=== PATIENT | female | born 1955 | race Caucasian/White ===

== ENCOUNTER 2017-11-22 09:03 | Inpatient (IN) | payer BC ==
[2017-11-22] MEDS ORDERED: Albuterol/Ipratropium 3.0-0.5 MG/3 ML Neb Soln NEB ONE (09:16)
[2017-11-22] MEDS ORDERED: methylPREDNISolone Sodium Succinate 125 MG/2 ML SDV IM ONE (09:16)
[2017-11-22] MEDS ORDERED: Albuterol/Ipratropium 3.0-0.5 MG/3 ML Neb Soln ONE (09:22)
[2017-11-22] MEDS ORDERED: Levofloxacin/Dextrose 5%-Water 750 MG in Premix Bag 1 BAG IV ONE (09:36)
[2017-11-22] MEDS: Sodium Chloride 0.9% 10 ML Syringe FLUSH PRN (09:50)
[2017-11-22] MEDS ORDERED: methylPREDNISolone Sodium Succinate 125 MG/2 ML SDV IVPUSH ONE (10:02)
--- NOTE | 2017-11-22 10:09 | CR ---
Chest: Portable view of the chest is obtained. Comparison: No previous study. Diffuse increased density is seen throughout the right chest. Central lung markings are increased on the left side. Findings may represent diffuse bronchitis and early right-sided pneumonia. Asymmetric pulmonary vascular congestion is also possible on a noncardiogenic etiology or due to acute cardiac disease. Heart size and mediastinum are normal. Bony structures are unremarkable. Impression: 1. Diffuse increased density within both sides of the chest, worse on the right side as described above. Diagnostic code #3
[2017-11-22] MEDS ORDERED: Albuterol 0.083% 2.5 MG/3 ML Neb Soln NEB ONE (11:08)
--- NOTE | 2017-11-22 11:08 | EDM.PDOC ---
ED HPI GENERAL MEDICAL PROBLEM - General Chief Complaint: Respiratory Problem Stated Complaint: [facility] Time Seen by Provider: 11/22/17 09:08 Source of Information: Reports: Patient, RN Notes Reviewed - History of Present Illness INITIAL COMMENTS - FREE TEXT/NARRATIVE: 62-year-old lady has been brought in by [facility] ambulance with cough, fever, chills, dyspnea, difficulty breathing, near respiratory failure. Her called a different family member due to her difficulty breathing, generalized weakness, inability to get out of bed this morning. Upon that family members arrival patient was having severe difficulty breathing was starting to "turn blue. ambulance called, upon their arrival she did look dusky and O2 sats were only in the 50% range. They placed her on 15 L O2 nonrebreather and also started an albuterol neb in route. With that her sats did come up to 98% . She arrived to the ED with sats running 96-98% on the nonrebreather but very tachypneic, somewhat confused, not able to give reliable history. Pain is primarily from a brother. He eats that she has not been well for 3 or 4 days with cough congestion some difficulty breathing. He states she did seem to be better yesterday was able to get up and walk around the bed then much worse this morning. She does have history of prior smoking. She does not use oxygen at home. No history of known diabetes. - Related Data Allergies Allergy/AdvReac Type Severity Reaction Status Date / Time No Known Allergies Allergy Verified 11/22/17 09:48 Home Meds: Home Meds Fish Oil/[place]-3 Fatty Acids [Fish Oil] 1 tab PO DAILY 11/22/17 [History] MV,Ca,Min/Iron Fum/FA/Lyco/Lut [Complete Multi] 1 tab PO DAILY 11/22/17 [History ] Magnesium [Magnesium] 200 mg PO DAILY 11/22/17 [History] Potassium [Potassium] 75 mg PO DAILY 11/22/17 [History] Turmeric/Turmeric Root Extract [Turmeric 450-50 mg Capsule] 900 mg PO DAILY [History] Zolpidem [Ambien CR] 12.5 mg PO QPM 11/22/17 [History] amLODIPine Bes/Olmesartan Med [Chrissie 10-40 MG] 1 tab PO DAILY 11/22/17 [History] atorvaSTATin [Lipitor] 20 mg PO DAILY 11/22/17 [History] busPIRone HCl [Buspirone HCl] 2.5 tab PO BID 11/22/17 [History] Past Medical History HEENT History: Reports: Impaired Vision [employer]EST[employer] History: Reports: Psychiatric History: Reports: Anxiety, Depression - Past Surgical History GI Surgical History: Reports: Appendectomy Female Surgical History: Reports: Tubal Ligation Social & Family History - Tobacco Use Smoking Status *Q: Current Every Day Smoker Years of Tobacco use: 40 Packs/Tins Daily: 0.5 - Caffeine Use Caffeine Use: Reports: Coffee - Recreational Drug Use Recreational Drug Use: No ED ROS GENERAL - Review of Systems Review Of Systems: Unable To Obtain (What limited information I have is from family) Constitutional: Reports: Fever, Chills Respiratory: Reports: Shortness of Breath, Wheezing, Cough ED EXAM, GENERAL - Physical Exam Exam: See Below Exam Limited By: Altered Mental Status (Patient moderately confused on arrival, she does make eye contact, attempts to answer questions but her answers don't make much sense) General Appearance: Alert, Moderate Distress Eye Exam: Bilateral Eye: PERRL Throat/Mouth: Other (Oral mucosa mildly dry) Head: No: Atraumatic, Facial Swelling Respiratory/Chest: Respiratory Distress (Moderate tachypnea), Rhonchi (Mild to moderate bilateral mild right-sided), Wheezing, Accessory Muscle Use GI/Abdominal: Soft, Non-Tender. No: Guarding Back Exam: No: CVA Tenderness (L), CVA Tenderness (R) Extremities: No: Pedal Edema, Leg Pain, Increased Warmth, Redness Neurological: No Motor/Sensory Deficits, Other (Awake, moderately confused) Skin Exam: Warm, Dry, Normal Color Course - Vital Signs Last Recorded V/S: Last Vital Signs Temp 101.7 F H 11/22/17 09:07 Pulse 128 H 11/22/17 09:07 Resp 24 H 11/22/17 09:07 BP 115/83 11/22/17 09:07 Pulse Ox 100 11/22/17 09:23 - Orders/Labs/Meds Orders: Active Orders 24 hr Category Date Time Status EKG 12 Lead [EKG Documentation Completion] [RC] STAT Care 11/22/17 09:15 Active Oxygen Therapy [RC] ASDIRECTED Care 11/22/17 09:15 Active Peripheral IV Care [RC] . DIRECTED Care 11/22/17 09:16 Active RT Aerosol Therapy [RC] ASDIRECTED Care 11/22/17 09:16 Active RT Aerosol Therapy [RC] ASDIRECTED Care 11/22/17 11:08 Active CULTURE BLOOD [BC] Stat Lab 11/22/17 09:20 Received CULTURE BLOOD [BC] Stat Lab 11/22/17 09:40 Received Sodium Chloride 0.9% [Saline Flush] Med 11/22/17 09:16 Active 10 ml FLUSH ASDIRECTED PRN Peripheral IV Insertion Adult [OM.PC] Stat Oth 11/22/17 09:15 Ordered Medication Orders Sodium Chloride (Saline Flush) 10 ml FLUSH ASDIRECTED PRN PRN Reason: Keep Vein Open Last Admin: 11/22/17 09:50 Dose: 10 ml Labs: Laboratory Tests 11/22/17 11/22/17 11/22/17 Range/Units 09:20 09:54 09:59 WBC 14.17 H (3.98-10.04) K/mm3 RBC 4.75 (3.98-5.22) M/mm3 Hgb 14.2 (11.2-15.7) gm/L Hct 43.4 (34.1-44.9) % MCV 91.4 (79.4-94.8) fl MCH 29.9 (25.6-32.2) pg MCHC 32.7 (32.2-35.5) g/dl RDW Std Deviation 55.5 H (36.4-46.3) fL Plt Count 316 (182-369) K/mm3 MPV 10.7 (9.4-12.3) fl Neutrophils % (Manual) 53 (40-60) % Band Neutrophils % 30 H (0-10) % Lymphocytes % (Manual) 10 L (20-40) % Atypical Lymphs % 0 % Monocytes % (Manual) 7 (2-10) % Eosinophils % (Manual) 0 L (0.7-5.8) % Basophils % (Manual) 0 L (0.1-1.2) Differential Comment See note Toxic Granulation 1+ slight Platelet Estimate Adequate RBC Morph Comment Normal Puncture Site Rt radial ABG pH 7.30 L (7.35-7.45) ABG pCO2 57.5 H (35.0-45.0) mmHg ABG pO2 67.0 L (80.0-100.0) mmHg ABG HCO3 27.4 H (22.0-26.0) meq/L ABG O2 Saturation 92.8 L (96.0-97.0) % ABG Base Excess 0.2 (-2-2.0) A-a Gradient 149 mmHg O2 Delivery Device Venturi mask FiO2 45.00 (21.00-100.00) % Sodium (136-145) mEq/L Potassium (3.5-5.1) mEq/L Chloride (98-107) mEq/L Carbon Dioxide (21-32) mEq/L Anion Gap (5-15) BUN (7-18) mg/dL Creatinine (0.55-1.02) mg/dL Est Cr Clr Drug Dosing mL/min Estimated GFR (MDRD) (>60) mL/min BUN/Creatinine Ratio (14-18) Glucose (80-115) mg/dL Calcium (8.5-10.1) mg/dL Total Bilirubin (0.2-1.0) mg/dL AST (15-37) U/L ALT (14-59) U/L Alkaline Phosphatase (46-116) U/L C-Reactive Protein 38.5 H* (<1.0) mg/dL NT-Pro-B Natriuret Pep (0-125) pg/mL Total Protein (6.4-8.2) g/dl Albumin (3.4-5.0) g/dl Globulin gm/dL Albumin/Globulin Ratio (1-2) 11/22/17 11/22/17 Range/Units 09:59 09:59 WBC (3.98-10.04) K/mm3 RBC (3.98-5.22) M/mm3 Hgb (11.2-15.7) gm/L Hct (34.1-44.9) % MCV (79.4-94.8) fl MCH (25.6-32.2) pg MCHC (32.2-35.5) g/dl RDW Std Deviation (36.4-46.3) fL Plt Count (182-369) K/mm3 MPV (9.4-12.3) fl Neutrophils % (Manual) (40-60) % Band Neutrophils % (0-10) % Lymphocytes % (Manual) (20-40) % Atypical Lymphs % % Monocytes % (Manual) (2-10) % Eosinophils % (Manual) (0.7-5.8) % Basophils % (Manual) (0.1-1.2) Differential Comment Toxic Granulation Platelet Estimate RBC Morph Comment Puncture Site ABG pH (7.35-7.45) ABG pCO2 (35.0-45.0) mmHg ABG pO2 (80.0-100.0) mmHg ABG HCO3 (22.0-26.0) meq/L ABG O2 Saturation (96.0-97.0) % ABG Base Excess (-2-2.0) A-a Gradient mmHg O2 Delivery Device FiO2 (21.00-100.00) % Sodium 140 (136-145) mEq/L Potassium 4.5 (3.5-5.1) mEq/L Chloride 99 (98-107) mEq/L Carbon Dioxide 27 (21-32) mEq/L Anion Gap 18.5 H (5-15) BUN 49 H (7-18) mg/dL Creatinine 1.3 H (0.55-1.02) mg/dL Est Cr Clr Drug Dosing 37.12 mL/min Estimated GFR (MDRD) 42 (>60) mL/min BUN/Creatinine Ratio 37.7 H (14-18) Glucose 144 H (80-115) mg/dL Calcium 9.2 (8.5-10.1) mg/dL Total Bilirubin 0.3 (0.2-1.0) mg/dL AST 17 (15-37) U/L ALT 22 (14-59) U/L Alkaline Phosphatase 69 (46-116) U/L C-Reactive Protein (<1.0) mg/dL NT-Pro-B Natriuret Pep 1432 H (0-125) pg/mL Total Protein 7.4 (6.4-8.2) g/dl Albumin 2.6 L (3.4-5.0) g/dl Globulin 4.8 gm/dL Albumin/Globulin Ratio 0.5 L (1-2) Meds: Medications Generic Name Dose Route Start Last Admin Trade Name Freq PRN Reason Stop Dose Admin Sodium Chloride 10 ml 11/22/17 09:16 02/21/18 09:50 Saline Flush FLUSH 10 ml ASDIRECTED PRN Administration Keep Vein Open Discontinued Medications Generic Name Dose Route Start Last Admin Trade Name Tres PRN Reason Stop Dose Admin Albuterol 2.5 mg 11/22/17 11:08 Proventil Neb Soln NEB 11/22/17 11:09 ONETIME ONE Albuterol/Ipratropium 3 ml 11/22/17 09:16 11/22/17 09:22 Duoneb 3.0-0.5 Mg/3 Ml NEB 11/22/17 09:17 3 ml ONETIME ONE Administration Albuterol/Ipratropium Confirm 11/22/17 09:22 11/22/17 09:22 Duoneb 3.0-0.5 Mg/3 Ml Administered 11/22/17 09:23 Not Given Dose 3 ml .ROUTE .STK-MED ONE Levofloxacin/Dextrose 750 mg/ 150 mls @ 100 mls/hr 11/22/17 09:36 11/22/17 09 :55 Premix IV 11/22/17 11:05 100 mls/hr ONETIME ONE Administration Methylprednisolone Sodium Succinate 125 mg 11/22/17 09:16 Solu-Medrol IM 11/22/17 09:17 ONETIME ONE Methylprednisolone Sodium Succinate 125 mg 11/22/17 10:02 11/22/17 10:03 Solu-Medrol IVPUSH 11/22/17 10:03 125 mg ONETIME ONE Administration - Re-Assessments/Exams Free Text/Narrative Re-Assessment/Exam: 11/22/17 11:16 Chest x-ray does show diffuse increased right-sided density, heart size normal, radiology reports this is compatible with bronchitis, possible early pneumonia. Her symptoms certainly fit with early pneumonia. Influenza screen has come back negative, white blood count elevated. C-reactive protein 38.5. Cultures 2 have been obtained. Levaquin 750 mg IV running. We did drop her down to 45% O2 Venturi mask. Sats initially were in the 90-92 range no more recently dropping at times to 88%. We are going to start some BiPAP. Repeat albuterol neb ordered. Solu-Medrol 125 mg has been given IV. She will be admitted at this time to ICU. Departure - Departure Time of Disposition: :21 Disposition: Admitted As Inpatient 66 Condition: Serious Clinical Impression: Hypoxia Pneumonia Qualifiers: Pneumonia type: due to unspecified organism Laterality: right Lung location: lower lobe of lung Qualified Code(s): J18.1 - Lobar pneumonia, unspecified organism - Discharge Information Referrals: Lisa Lares, ETIQUETTE COACH [Primary Care Provider] - Forms: ED Department Discharge ED Communication - Discussed Case With (1) Discussed Case With (1): Admitting Provider (, decision to admit this at about 11:10) - My Orders Last 24 Hours: My Active Orders 11/22/17 09:15 EKG 12 Lead [EKG Documentation Completion] [RC] STAT Oxygen Therapy [RC] ASDIRECTED Peripheral IV Insertion Adult [OM.PC] Stat 11/22/17 09:16 Peripheral IV Care [RC] . DIRECTED RT Aerosol Therapy [RC] ASDIRECTED Sodium Chloride 0.9% [Saline Flush] 10 ml FLUSH ASDIRECTED PRN 11/22/17 09:20 CULTURE BLOOD [BC] Stat 11/22/17 09:40 CULTURE BLOOD [BC] Stat 11/22/17 11:08 RT Aerosol Therapy [RC] ASDIRECTED - Assessment/Plan Last 24 Hours: My Active Orders 11/22/17 09:15 EKG 12 Lead [EKG Documentation Completion] [RC] STAT Oxygen Therapy [RC] ASDIRECTED Peripheral IV Insertion Adult [OM.PC] Stat 11/22/17 09:16 Peripheral IV Care [RC] . DIRECTED RT Aerosol Therapy [RC] ASDIRECTED Sodium Chloride 0.9% [Saline Flush] 10 ml FLUSH ASDIRECTED PRN 11/22/17 09:20 CULTURE BLOOD [BC] Stat 11/22/17 09:40 CULTURE BLOOD [BC] Stat 11/22/17 11:08 RT Aerosol Therapy [RC] ASDIRECTED
[2017-11-22] MEDS ORDERED: Sodium Chloride 0.9% 1,000 ML ONE (11:19)
[2017-11-22] MEDS ORDERED: Sodium Chloride 0.9% 500 ML IV ONE (11:33)
[2017-11-22] MEDS ORDERED: Acetaminophen 650 MG Supp RECTAL PRN (12:40)
[2017-11-22] MEDS ORDERED: Metoprolol Tartrate 5 MG/5 ML SDV IVPUSH PRN (12:45)
[2017-11-22] MEDS ORDERED: hydrALAZINE 20 MG/ML SDV IVPUSH PRN (12:45)
--- NOTE | 2017-11-22 12:52 | PCM.HP ---
H&P History of Present Illness - General Date of Service: 11/22/17 Admit Problem/Dx: Admission Diagnosis/Problem Admission Diagnosis/Problem Pneumonia Source of Information: Patient, Family, Provider, RN, RN Notes Reviewed History Limitations: Reports: Altered Mental Status - History of Present Illness Initial Comments - Free Text/Narative: Jessica Smith is a 62 yo female who presents to our ED today (11/22/17) via EMS with cough, fever, chills, dyspnea, SOB, and near respiratory failure. It is reported her called her brother this morning because she was having SOB , generalized weakness, and she was unable to get out of bed. When her brother arrived he noted she was cyanotic and called the ambulance. On EMS arrival she looked dusky and O2 sats were in the 50% range. She was given an albuterol neb and started on 15 L via nonrebreather, which raised her sats up to 98%. Arrival ED sats were 96-98% but she was very tachypneic, confused, and not able to give a history. Patient history is primarily provided by her brother. He reports that she has not been well for 3-4 days with cough congestion and some difficulty breathing. He did seem to be improving yesterday was able to get up and walk around but was much worse this morning. She does have a significant history of smoking. She does not have home oxygen. No known diabetes. In the ED temp was 101.7. Pulse 128. Respirations 24. Blood pressure 115/83. Pulse ox 100%. Labs are obtained: 30 mL elevated at 14.17. Hemoglobin good at 14.2. Hematocrit 43.4. She is normocytic. RDW is elevated at 55.5. Pulse are high at 316. Neutrophils are noted at 53%. She does have bandemia with a 30 % band neutrophil count. ABG was obtained and shows that she is acidotic with pH of 7.30. PCO2 is high at 57.5. P O2 is low at 67. Bicarbonate is high at 27.4. Oxygen saturation low at 92.8%. Base excess is 0.2. A-a gradient is 149. This was on a Venturi mask. CRP is 38.5. Sodium was good at 140. Potassium 4.5. Chloride 99. Carbon dioxide 27. Anion gap is high at 18.5. BUN is high at 39. Creatinine is high at 1.3. EGFR is 42. Glucose is high at 144. Calcium is 9.2. Total bilirubin 0.3. Liver enzymes looked good with AST of 17, ALT at 22, alkaline phosphatase at 69. ProBNP is high at 1432. Protein 7.4. Albumin is low at 2.6. She was given albuterol and DuoNeb's. 750 mg Levaquin is initiated. 125 mg IV site middle also started. Portal chest x-ray is obtained and interpreted by Dr. Joseph as "1. Diffuse increased density within both sides of the chest, worse on the right side as described." This is compatible with bronchitis or possible early pneumonia. Influenza screen was negative. BiPAP was initiated. Telemetry was obtained and shows a sinus tachycardia with possible biatrial enlargement. There is Q waves noted in V1 and V2 representing a possible old anteroseptal infarct. The acute is appreciated. I reviewed her prior clinic notes from her PCP. She carries a history of hypomagnesemia, hypokalemia, anxiety, depression, HDL, arthritis, insomnia, HTN. She is a current daily smoker and reportedly smokes a half pack a day. She does have a significant history of smoking for 40+ years. She subsequently admitted to the ICU. Full code. PCP is AWILDA Arreaga at [facility]. Generalized Pain Score (Numeric/FACES): 4 - Related Data Allergies/Adverse Reactions: Allergies Allergy/AdvReac Type Severity Reaction Status Date / Time No Known Allergies Allergy Verified 11/22/17 09:48 Home Medications: Home Meds Fish Oil/[place]-3 Fatty Acids [Fish Oil] 1 tab PO DAILY 11/22/17 [History] MV,Ca,Min/Iron Fum/FA/Lyco/Lut [Complete Multi] 1 tab PO DAILY 11/22/17 [History ] Magnesium [Magnesium] 200 mg PO DAILY 11/22/17 [History] Potassium [Potassium] 75 mg PO DAILY 11/22/17 [History] Turmeric/Turmeric Root Extract [Turmeric 450-50 mg Capsule] 900 mg PO DAILY [History] Zolpidem [Ambien CR] 12.5 mg PO QPM 11/22/17 [History] amLODIPine Bes/Olmesartan Med [Chrissie 10-40 MG] 1 tab PO DAILY 11/22/17 [History] atorvaSTATin [Lipitor] 20 mg PO DAILY 11/22/17 [History] busPIRone HCl [Buspirone HCl] 2.5 tab PO BID 11/22/17 [History] Past Medical History HEENT History: Reports: Impaired Vision 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 She does deny any pain. She denies any shortness of breath. She does know her first name but does not know her last name. She knows she is in the hospital but is unsure what city. She denies any complaints. She does respond appropriately to some questions so unreliable ROS is unable to be obtained. From what I gather in talking with family in ICU and the ED provider the patient has been having cough, fever, chills, dyspnea for the past 3-4 days. Her PCP was contacted and does report a significant history of anxiety and cigarette use, however she is relatively healthy. Exam - Exam Exam: See Below - Vital Signs Vital Signs: Last Vital Signs Temp 101.7 F H 11/22/17 09:07 Pulse 128 H 11/22/17 09:07 Resp 24 H 11/22/17 09:07 BP 115/83 11/22/17 09:07 Pulse Ox 90 L 11/22/17 11:08 Weight: 120 lb - Exam Quality Assessment: Supplemental Oxygen, DVT Prophylaxis, Other (BIPAP in place ) General: Alert, Mild Distress. No: Oriented, Cooperative HEENT: PERRLA, Hearing Intact, Mucosa Moist & [place], Nares Patent, Normal Nasal Septum, Posterior Pharynx Clear, Conjunctiva Clear, EOMI, EACs Clear, TMs Clear Neck: Supple, Trachea Midline Lungs: Decreased Breath Sounds, Rhonchi, Wheezing, Other (Tachypneic ) Cardiovascular: Regular Rhythm, Tachycardia GI/Abdominal Exam: Normal Bowel Sounds, Soft, Non-Tender, No Organomegaly, No Distention, No Abnormal Bruit, No Mass, Pelvis Stable (Female) Exam: Deferred Rectal (Female) Exam: Deferred Back Exam: Normal Inspection, Full Range of Motion Extremities: Normal Inspection, Normal Range of Motion, Non-Tender, No Pedal Edema, Normal Capillary Refill Peripheral Pulses: 3+: Radial (L), Radial (R), Posterior Tibial (L), Posterior Tibial (R), Dorsalis Pedis (L), Dorsalis Pedis (R) Skin: Warm, Dry, Intact Neurological: Cranial Nerves Intact (grossly ) Neuro Extensive - Mental Status: Alert, Disorientation to Person (unsure of last name but knows first name ), Disorientation to Place (Knows she is in hospital but unsure where. ), Disorientation to Time. No: Oriented x3 Neuro Extensive - Motor, Sensory, Reflexes: No: Tongue Deviation (L), Tongue Deviation (R), Expressive Aphasia, Facial Palsy w Forehead, Hemeplagia (R), Hemeplagia (L), Abnormal Sensation, Abnormal Motor, Motor/Sensory Deficits Psychiatric: Alert, Anxious (constantly attempting to pull at EKG leads and remove BIPAP ) - Patient Data Result Diagrams: 11/22/17 09:20 11/22/17 09:59 *Q Meaningful Use (ADM) - VTE *Q VTE Criteria *Q: - Stroke *Q Stroke Criteria *Q: - AMI *Q AMI Criteria *Q: - Problem List (1) Pneumonia SNOMED Code(s): 749318847 ICD Code: J18.9 - PNEUMONIA, UNSPECIFIED ORGANISM Status: Acute Priority : High Current Visit: Yes Qualifiers: Pneumonia type: due to unspecified organism Laterality: right Lung location: lower lobe of lung Qualified Code(s): J18.1 - Lobar pneumonia, unspecified organism (2) Acidosis SNOMED Code(s): 38715867 ICD Code: E87.2 - ACIDOSIS Status: Acute Priority: High Current Visit: Yes (3) Altered mental status SNOMED Code(s): 107784021 ICD Code: R41.82 - ALTERED MENTAL STATUS, UNSPECIFIED Status: Acute Priority: High Current Visit: Yes Qualifiers: Altered mental status type: disorientation Qualified Code(s): R41.0 - Disorientation, unspecified (4) Hypoxia SNOMED Code(s): 027753963 ICD Code: R09.02 - HYPOXEMIA Status: Acute Priority: High Current Visit : Yes (5) Tobacco use disorder SNOMED Code(s): 993292771 ICD Code: F17.200 - NICOTINE DEPENDENCE, UNSPECIFIED, UNCOMPLICATED Status : Chronic Priority: Medium Current Visit: Yes (6) Anxiety SNOMED Code(s): 89015286 ICD Code: F41.9 - ANXIETY DISORDER, UNSPECIFIED Status: Chronic Priority : Low Current Visit: Yes (7) HLD (hyperlipidemia) SNOMED Code(s): 87684728 ICD Code: E78.5 - HYPERLIPIDEMIA, UNSPECIFIED Status: Chronic Priority: Low Current Visit: No Qualifiers: Hyperlipidemia type: unspecified Qualified Code(s): E78.5 - Hyperlipidemia , unspecified (8) HTN (hypertension) SNOMED Code(s): 69440056 ICD Code: I10 - ESSENTIAL (PRIMARY) HYPERTENSION Status: Acute Current Visit: Yes (9) Insomnia SNOMED Code(s): 828861546 ICD Code: G47.00 - INSOMNIA, UNSPECIFIED Status: Acute Current Visit: Yes (10) Arthritis SNOMED Code(s): 0848956 ICD Code: M19.90 - UNSPECIFIED OSTEOARTHRITIS, UNSPECIFIED SITE Status: Chronic Priority: Low Current Visit: No Problem List Initiated/Reviewed/Updated: Yes Orders Last 24hrs: Active Orders 24 hr Category Date Time Status Antiembolic Devices [RC] PER UNIT ROUTINE Care 11/22/17 12:42 Ordered Bedrest Bedside Commode [RC] ASDIRECTED Care 11/22/17 12:40 Ordered Cardiac Monitoring [RC] CONTINUOUS Care 11/22/17 12:41 Ordered Height and Weight [RC] DAILY Care 11/22/17 12:40 Ordered Intake and Output [RC] QSHIFT Care 11/22/17 12:41 Ordered Pulse Oximetry [RC] CONTINUOUS Care 11/22/17 12:41 Ordered RT Aerosol Therapy [RC] ASDIRECTED Care 11/22/17 12:42 Ordered RT Aerosol Therapy [RC] ASDIRECTED Care 11/22/17 12:48 Ordered VTE/DVT Education [RC] PER UNIT ROUTINE Care 11/22/17 12:40 Ordered Vital Signs [RC] Q2HR Care 11/22/17 12:40 Ordered Consult to Case Management [CONS] Routine Cons 11/22/17 12:40 Ordered Consult to Brake Lining Maker [CONS] Routine Cons 11/22/17 12:40 Ordered Respiratory Care Assess and Treatment [CONS] Routine Cons 11/22/17 12:40 Ordered Nothing per Oral Now Diet [DIET] Diet 11/22/17 Dinner Ordered Chest 2V [CR] Routine Exams 11/24/17 08:00 Ordered BASIC METABOLIC PANEL,BMP [CHEM] AM Lab 11/23/17 05:11 Ordered BASIC METABOLIC PANEL,BMP [CHEM] AM Lab 11/24/17 05:11 Ordered BASIC METABOLIC PANEL,BMP [CHEM] AM Lab 11/25/17 05:11 Ordered BASIC METABOLIC PANEL,BMP [CHEM] AM Lab 11/26/17 05:11 Ordered BLOOD GAS ARTERIAL [BG] Urgent Lab 11/22/17 14:00 Ordered CBC WITH AUTO DIFF [HEME] AM Lab 11/23/17 05:11 Ordered CBC WITH AUTO DIFF [HEME] AM Lab 11/24/17 05:11 Ordered CBC WITH AUTO DIFF [HEME] AM Lab 11/25/17 05:11 Ordered CBC WITH AUTO DIFF [HEME] AM Lab 11/26/17 05:11 Ordered CRP [C-REACTIVE PROTEIN] [CHEM] AM Lab 11/23/17 05:11 Ordered CRP [C-REACTIVE PROTEIN] [CHEM] AM Lab 11/24/17 05:11 Ordered CRP [C-REACTIVE PROTEIN] [CHEM] AM Lab 11/25/17 05:11 Ordered CRP [C-REACTIVE PROTEIN] [CHEM] AM Lab 11/26/17 05:11 Ordered MAGNESIUM [CHEM] AM Lab 11/23/17 05:11 Ordered MAGNESIUM [CHEM] AM Lab 11/24/17 05:11 Ordered MAGNESIUM [CHEM] AM Lab 11/25/17 05:11 Ordered MAGNESIUM [CHEM] AM Lab 11/26/17 05:11 Ordered MAGNESIUM [CHEM] Routine Lab 11/22/17 12:51 Ordered MYCOPLASMA PNEUMONIAE IGM AB [CHEM] Routine Lab 11/22/17 12:44 Ordered STREP PNEUMONIAE ANTIGEN [MREF] Routine Lab 11/22/17 12:44 Ordered Acetaminophen [Tylenol] Med 11/22/17 12:40 Ordered 650 mg RECTAL Q4H PRN Albuterol/Ipratropium [DuoNeb 3.0-0.5 MG/3 ML] Med 11/22/17 15:00 Ordered 3 ml NEB Q6HRRT Budesonide [Pulmicort] Med 11/22/17 21:00 Ordered 0.5 mg NEB BIDRT Enoxaparin [Lovenox] Med 11/23/17 09:00 Ordered 40 mg SUBCUT DAILY Levofloxacin/Dextrose 5%-Water [Levaquin in D5W 750 MG/ Med 11/23/17 09:00 Ordered 150 ML] 750 mg Premix Bag 1 bag IV Q24H Magnesium Rep Pharmacy to Dose [Pharmacy to Dose - Med 11/22/17 12:45 Ordered Magnesium Replacement] 1 dose .XX ASDIRECTED Metoprolol Tartrate [Lopressor] Med 11/22/17 12:45 Ordered 5 mg IVPUSH Q4H PRN Nicotine [Habitrol] Med 11/22/17 12:45 Ordered 21 mg TRDERM DAILY Potassium Rep Pharmacy to Dose [Pharmacy to Dose - Med 11/22/17 12:45 Ordered Potassium Replacement] 1 dose .XX ASDIRECTED hydrALAZINE [Apresoline] Med 11/22/17 12:45 Ordered 10 mg IVPUSH Q6H PRN methylPREDNISolone Sod Succ [Solu-MEDROL] Med 11/22/17 18:00 Ordered 125 mg IVPUSH Q8H Antiembolic Hose [OM.PC] Per Unit Routine Oth 11/22/17 12:41 Ordered Resuscitation Status Routine Resus Stat 11/22/17 12:40 Ordered Medication Orders Acetaminophen (Tylenol) 650 mg RECTAL Q4H PRN PRN Reason: Pain (mild 1-3) Albuterol/Ipratropium (Duoneb 3.0-0.5 Mg/3 Ml) 3 ml NEB Q6HRRT [facility] Budesonide (Pulmicort) 0.5 mg NEB BIDRT [facility] Enoxaparin Sodium (Lovenox) 40 mg SUBCUT DAILY [facility] Hydralazine HCl (Apresoline) 10 mg IVPUSH Q6H PRN PRN Reason: Hypertension Levofloxacin/Dextrose 750 mg/ (Premix) 150 mls @ 100 mls/hr IV Q24H [facility] Magnesium Sulfate (Pharmacy To Dose - Magnesium Replacement) 1 dose .XX ASDIRECTED [facility] Methylprednisolone Sodium Succinate (Solu-Medrol) 125 mg IVPUSH Q8H [facility] Metoprolol Tartrate (Lopressor) 5 mg IVPUSH Q4H PRN PRN Reason: Tachycardia Nicotine (Habitrol) 21 mg TRDERM DAILY [facility] Potassium Chloride (Pharmacy To Dose - Potassium Replacement) 1 dose .XX ASDIRECTED [facility] Sodium Chloride (Saline Flush) 10 ml FLUSH ASDIRECTED PRN PRN Reason: Keep Vein Open Last Admin: 11/22/17 09:50 Dose: 10 ml Assessment/Plan Comment:: I/P: Acute: Pneumonia -Fever, chills, dyspnea, and cough for past 3-4 days -EMS found cyanotic with saturations in the 50's and AMS -Risk factor: 40+ year smoking history, no diagnosed respiratory diseases -Increased density bilaterally but more prominent on right side -Levaquin started in ED - continue -WBC 14.17, CRP 38.5 -Lactic acid ordered -RT (IS and Acapella once mentation improves) -Solu-medrol -Pulmicort -Duonebs Q6hr -Blood cultures pending -Sputum culture once mentation improves AMS -Likely 2/2 above with acidosis -Cyanotic and AMS with EMS -Family reports normal mental status at baseline -ABG shows respiratory acidosis, repeat ordered -Pulling at EKG wires, attempting to pull off BIPAP -Alert; knows first name but not last, knows hospital but not town - working to establish power of transactional attorney with son/brother -BIPAP, monitor need for intubation -UA ordered -NPO for now - IV fluids if needed Chronic: Anxiety depression HLD HTN - PRN IV meds Insomnia Hypokalemia - IV repletion Hypomagnesemia - IV repletion Tobacco use disorder Plan: Admit to ICU CM/SW PT/OT when more responsive Aspiration/fall precautions DVT prophylaxis: JOSE Hose and lovenox 1:1 nursing care until mentation improves Other orders as indicated above Home meds once mentation improves Routine AM labs Code status: Full code; PCP AWILDA Rosado here at [facility]
[2017-11-22] MEDS: Nicotine 21 MG/24 Hr Patch TRDERM SCH (13:49)
[2017-11-22] MEDS: Albuterol/Ipratropium 3.0-0.5 MG/3 ML Neb Soln NEB SCH ×2 (14:04→20:37)
[2017-11-22] MEDS ORDERED: Pneumococcal Polyvalent-23 Vaccine 0.5 ML SDV IM ONE (18:00)
[2017-11-22] MEDS: methylPREDNISolone Sodium Succinate 125 MG/2 ML SDV IVPUSH SCH (18:05)
[2017-11-22] MEDS: Budesonide 0.5 MG/2 ML Neb Susp NEB SCH (20:37)
[2017-11-22] MEDS: busPIRone 5 MG Tab PO SCH (20:55)
[2017-11-22] MEDS ORDERED: Budesonide 0.5 MG/2 ML Neb Susp NEB SCH (21:00)
[2017-11-22] MEDS ORDERED: Zolpidem 10 MG Tab PO SCH (21:00)
[2017-11-23] MEDS: methylPREDNISolone Sodium Succinate 125 MG/2 ML SDV IVPUSH SCH ×2 (02:22→10:49)
[2017-11-23] MEDS: Albuterol/Ipratropium 3.0-0.5 MG/3 ML Neb Soln NEB SCH ×4 (03:07→21:30)
[2017-11-23] MEDS: Budesonide 0.5 MG/2 ML Neb Susp NEB SCH ×2 (08:00→21:30)
[2017-11-23] MEDS: Nicotine 21 MG/24 Hr Patch TRDERM SCH (08:52)
[2017-11-23] MEDS: Multivitamins with Minerals/Folic Acid/Lutein/Zeaxanth Tab PO SCH (08:53)
[2017-11-23] MEDS: Magnesium Oxide 400 MG Tab PO SCH (08:53)
[2017-11-23] MEDS: amLODIPine 10 MG Tab PO SCH (08:53)
[2017-11-23] MEDS: Losartan 100 MG Tab PO SCH (08:53)
[2017-11-23] MEDS: Simvastatin 20 MG Tab PO SCH (08:53)
[2017-11-23] MEDS: busPIRone 5 MG Tab PO SCH ×2 (08:54→21:02)
[2017-11-23] MEDS: Enoxaparin 40 MG/0.4 ML Syringe SUBCUT SCH (08:55)
[2017-11-23] MEDS ORDERED: POTASSIUM CHLORIDE PO SCH (09:00)
[2017-11-23] MEDS ORDERED: Sodium Chloride 0.9% 1,000 ML IV SCH (09:45)
--- NOTE | 2017-11-23 09:54 | PCM.PN ---
- General Info Date of Service: 11/23/17 Admission Dx/Problem (Free Text): Admission Diagnosis/Problem Admission Diagnosis/Problem Pneumonia Subjective Update: In to see Jessica. She is sitting in bed. O2 is on. She was recently up to use restroom. Now A&Ox3. She reports she slept poor last night. Frequent productive cough. Ordered mucinex. Added IS, Acapella, breathing exercises, and sputum culture now that patient is alert and cooperative. Will add azithromycin to antibiotic regimen. With smoking history and reported history of symptoms I am concerned about a early COPD. Will recommend PFTs after discharge. We had a lengthy talk about the severity of her symptoms and how close she was to being intubated. We discussed her smoking and how it impacts her health. We also discussed resources for quitting and possible nicotine patch on discharge. No nursing concerns. Downgraded to medical floor status. Functional Status: Reports: Pain Controlled, Tolerating Diet, Ambulating, Urinating, Incentive Spirometry. Denies: New Symptoms - Review of Systems General: Reports: Weakness, Fatigue, Malaise. Denies: Fever, Chills HEENT: Reports: No Symptoms. Denies: Ear Pain, Eye Pain, Sore Throat, Rhinitis Pulmonary: Reports: Shortness of Breath, Cough, Sputum, Wheezing Cardiovascular: Reports: Dyspnea on Exertion. Denies: Chest Pain, Palpitations , Edema, Lightheadedness Gastrointestinal: Reports: No Symptoms. Denies: Abdominal Pain, Constipation, Nausea, Vomiting Genitourinary: Reports: No Symptoms. Denies: Dysuria, Frequency, Burning, Pain , Urgency Musculoskeletal: Reports: No Symptoms Skin: Reports: No Symptoms Neurological: Reports: Headache (after nicotine patch placement ). Denies: Confusion, Dizziness, Numbness, Tingling, Trouble Speaking, Difficulty Walking Psychiatric: Reports: No Symptoms - Patient Data Vitals - Most Recent: Last Vital Signs Temp 98.2 F 11/23/17 08:00 Pulse 100 11/23/17 08:00 Resp 25 H 11/23/17 08:00 BP 114/75 11/23/17 08:53 Pulse Ox 93 L 11/23/17 08:08 Weight - Most Recent: 150 lb 6.4 oz I&O - Last 24 Hours: Intake & Output 02/21/18 02/22/18 02/22/18 22:59 06:59 14:59 Intake Total 1070 60 Output Total 275 300 Balance 795 -240 Lab Results Last 24 Hours: Laboratory Results - last 24 hr 11/22/17 11/22/17 11/22/17 Range/Units 14:32 15:08 16:04 WBC (3.98-10.04) K/mm3 RBC (3.98-5.22) M/mm3 Hgb (11.2-15.7) gm/L Hct (34.1-44.9) % MCV (79.4-94.8) fl MCH (25.6-32.2) pg MCHC (32.2-35.5) g/dl RDW Std Deviation (36.4-46.3) fL Plt Count (182-369) K/mm3 MPV (9.4-12.3) fl Neut % (Auto) (34.0-71.1) % Lymph % (Auto) (19.3-51.7) % [place] % (Auto) (4.7-12.5) % Eos % (Auto) (0.7-5.8) Baso % (Auto) (0.1-1.2) % Neut # (Auto) (1.56-6.13) K/mm3 Lymph # (Auto) (1.18-3.74) K/mm3 [place] # (Auto) (0.24-0.36) K/mm3 Eos # (Auto) (0.04-0.36) K/mm3 Baso # (Auto) (0.01-0.08) K/mm3 Manual Slide Review Puncture Site Rt radial ABG pH 7.31 L (7.35-7.45) ABG pCO2 55.7 H (35.0-45.0) mmHg ABG pO2 73.0 L (80.0-100.0) mmHg ABG HCO3 27.4 H (22.0-26.0) meq/L ABG O2 Saturation 95.0 L (96.0-97.0) % ABG Base Excess 0.6 (-2-2.0) Ritesh Test Positive A-a Gradient 113 mmHg O2 Delivery Device Bipap Oxygen Flow Rate 6.0 FiO2 40.00 (21.00-100.00) % Sodium (136-145) mEq/L Potassium (3.5-5.1) mEq/L Chloride (98-107) mEq/L Carbon Dioxide (21-32) mEq/L Anion Gap (5-15) BUN (7-18) mg/dL Creatinine (0.55-1.02) mg/dL Est Cr Clr Drug Dosing mL/min Estimated GFR (MDRD) (>60) mL/min BUN/Creatinine Ratio (14-18) Glucose (80-115) mg/dL Lactic Acid 1.3 (0.4-2.0) mmol/L Calcium (8.5-10.1) mg/dL Magnesium (1.8-2.4) mg/dl C-Reactive Protein (<1.0) mg/dL Urine Color Yellow (Yellow) Urine Appearance Clear (Clear) Urine pH 6.0 (5.0-8.0) Ur Specific [place] 1.025 (1.005-1.030) Urine Protein 1+ H (Negative) Urine Glucose (UA) Negative (Negative) Urine Ketones Negative (Negative) Urine Occult Blood Negative (Negative) Urine Nitrite Negative (Negative) Urine Bilirubin 1+ H (Negative) Urine Urobilinogen 0.2 (0.2-1.0) Ur Leukocyte Esterase Trace H (Negative) Urine RBC Not seen (0-5) /hpf Urine WBC 5-10 H (0-5) /hpf Urine WBC Clumps Few (NOT SEEN) /hpf Ur Epithelial Cells 0-5 (0-5) /hpf Urine Bacteria Few (FEW) /hpf Hyaline Casts 0-5 (0-5) /lpf Urine Mucus Few (FEW) /hpf 11/23/17 11/23/17 Range/Units 05:45 05:45 WBC 11.45 H (3.98-10.04) K/mm3 RBC 4.51 (3.98-5.22) M/mm3 Hgb 13.3 (11.2-15.7) gm/L Hct 42.3 (34.1-44.9) % MCV 93.8 (79.4-94.8) fl MCH 29.5 (25.6-32.2) pg MCHC 31.4 L (32.2-35.5) g/dl RDW Std Deviation 55.4 H (36.4-46.3) fL Plt Count 271 (182-369) K/mm3 MPV 10.7 (9.4-12.3) fl Neut % (Auto) 93.3 H (34.0-71.1) % Lymph % (Auto) 3.0 L (19.3-51.7) % [place] % (Auto) 3.4 L (4.7-12.5) % Eos % (Auto) 0 L (0.7-5.8) Baso % (Auto) 0.3 (0.1-1.2) % Neut # (Auto) 10.69 H (1.56-6.13) K/mm3 Lymph # (Auto) 0.34 L (1.18-3.74) K/mm3 [place] # (Auto) 0.39 H (0.24-0.36) K/mm3 Eos # (Auto) 0.00 L (0.04-0.36) K/mm3 Baso # (Auto) 0.03 (0.01-0.08) K/mm3 Manual Slide Review Abnormal smear Puncture Site ABG pH (7.35-7.45) ABG pCO2 (35.0-45.0) mmHg ABG pO2 (80.0-100.0) mmHg ABG HCO3 (22.0-26.0) meq/L ABG O2 Saturation (96.0-97.0) % ABG Base Excess (-2-2.0) Ritesh Test A-a Gradient mmHg O2 Delivery Device Oxygen Flow Rate FiO2 (21.00-100.00) % Sodium 141 (136-145) mEq/L Potassium 4.6 (3.5-5.1) mEq/L Chloride 104 (98-107) mEq/L Carbon Dioxide 30 (21-32) mEq/L Anion Gap 11.6 (5-15) BUN 69 H (7-18) mg/dL Creatinine 1.5 H (0.55-1.02) mg/dL Est Cr Clr Drug Dosing 32.17 mL/min Estimated GFR (MDRD) 35 (>60) mL/min BUN/Creatinine Ratio 46.0 H (14-18) Glucose 180 H (80-115) mg/dL Lactic Acid (0.4-2.0) mmol/L Calcium 9.2 (8.5-10.1) mg/dL Magnesium 2.8 H (1.8-2.4) mg/dl C-Reactive Protein 29.3 H* (<1.0) mg/dL Urine Color (Yellow) Urine Appearance (Clear) Urine pH (5.0-8.0) Ur Specific [place] (1.005-1.030) Urine Protein (Negative) Urine Glucose (UA) (Negative) Urine Ketones (Negative) Urine Occult Blood (Negative) Urine Nitrite (Negative) Urine Bilirubin (Negative) Urine Urobilinogen (0.2-1.0) Ur Leukocyte Esterase (Negative) Urine RBC (0-5) /hpf Urine WBC (0-5) /hpf Urine WBC Clumps (NOT SEEN) /hpf Ur Epithelial Cells (0-5) /hpf Urine Bacteria (FEW) /hpf Hyaline Casts (0-5) /lpf Urine Mucus (FEW) /hpf Med Orders - Current: Current Medications Acetaminophen (Tylenol) 650 mg RECTAL Q4H PRN PRN Reason: Pain (mild 1-3) Albuterol/Ipratropium (Duoneb 3.0-0.5 Mg/3 Ml) 3 ml NEB Q6HRRT [facility] Last Admin: 11/23/17 08:00 Dose: 3 ml Amlodipine Besylate (Norvasc) 10 mg PO DAILY [facility] Last Admin: 11/23/17 08:53 Dose: 10 mg Budesonide (Pulmicort) 0.5 mg NEB BID@0900,2100 [facility] Last Admin: 11/23/17 08:00 Dose: 0.5 mg Buspirone HCl (Buspar) 2.5 mg PO BID [facility] Last Admin: 11/23/17 08:54 Dose: 2.5 mg Enoxaparin Sodium (Lovenox) 40 mg SUBCUT DAILY [facility] Last Admin: 11/23/17 08:55 Dose: 40 mg Hydralazine HCl (Apresoline) 10 mg IVPUSH Q6H PRN PRN Reason: Hypertension Levofloxacin/Dextrose 750 mg/ (Premix) 150 mls @ 100 mls/hr IV Q48H [facility] Sodium Chloride (Normal Saline) 1,000 mls @ 100 mls/hr IV ASDIRECTED [facility] Stop: 11/24/17 05:00 Losartan Potassium (Cozaar) 100 mg PO DAILY [facility] Last Admin: 11/23/17 08:53 Dose: 100 mg Magnesium Oxide (Magnesium Oxide) 200 mg PO DAILY [facility] Last Admin: 11/23/17 08:53 Dose: 200 mg Magnesium Sulfate (Pharmacy To Dose - Magnesium Replacement) 0 dose .XX ASDIRECTED PRN PRN Reason: RX TO WATCH MAG LEVELS Methylprednisolone Sodium Succinate (Solu-Medrol) 125 mg IVPUSH Q8H [facility] Last Admin: 11/23/17 02:22 Dose: 125 mg Metoprolol Tartrate (Lopressor) 5 mg IVPUSH Q4H PRN PRN Reason: Tachycardia Miscellaneous Information (Remove Patch) 0 ea TRDERM DAILY [facility] Nicotine (Habitrol) 21 mg TRDERM DAILY [facility] Last Admin: 11/23/17 08:52 Dose: 21 mg Potassium Chloride (Pharmacy To Dose - Potassium Replacement) 0 dose .XX ASDIRECTED PRN PRN Reason: RX TO WATCH K LEVELS Simvastatin (Zocor) 20 mg PO DAILY [facility] Last Admin: 11/23/17 08:53 Dose: 20 mg Sodium Chloride (Saline Flush) 10 ml FLUSH ASDIRECTED PRN PRN Reason: Keep Vein Open Last Admin: 11/22/17 09:50 Dose: 10 ml Vit A/Vit C/Vit E/Selen/Cu/Zn/Lutei (Icaps Mv) 1 tab PO DAILY [facility] Last Admin: 11/23/17 08:53 Dose: 1 tab Zolpidem Tartrate (Ambien) 10 mg PO BEDTIME [facility] Last Admin: 11/22/17 21:00 Dose: 10 mg Discontinued Medications Albuterol (Proventil Neb Soln) 2.5 mg NEB ONETIME ONE Stop: 11/22/17 11:09 Last Admin: 11/22/17 11:24 Dose: 2.5 mg Albuterol/Ipratropium (Duoneb 3.0-0.5 Mg/3 Ml) 3 ml NEB ONETIME ONE Stop: 11/22/17 09:17 Last Admin: 11/22/17 09:22 Dose: 3 ml Albuterol/Ipratropium (Duoneb 3.0-0.5 Mg/3 Ml) Confirm Administered Dose 3 ml .ROUTE .STK-MED ONE Stop: 11/22/17 09:23 Last Admin: 11/22/17 09:22 Dose: Not Given Budesonide (Pulmicort) 0.5 mg NEB BIDRT [facility] Levofloxacin/Dextrose 750 mg/ (Premix) 150 mls @ 100 mls/hr IV ONETIME ONE Stop: 11/22/17 11:05 Last Admin: 11/22/17 09:55 Dose: 100 mls/hr Sodium Chloride (Normal Saline) Confirm Administered Dose 1,000 mls @ as directed .ROUTE .STK-MED ONE Stop: 11/22/17 11:20 Last Admin: 11/22/17 11:33 Dose: Not Given Sodium Chloride (Normal Saline) 500 mls @ 999 mls/hr IV .BOLUS ONE Stop: 11/22/17 12:03 Last Admin: 11/22/17 11:35 Dose: 999 mls/hr Methylprednisolone Sodium Succinate (Solu-Medrol) 125 mg IM ONETIME ONE Stop: 11/22/17 09:17 Methylprednisolone Sodium Succinate (Solu-Medrol) 125 mg IVPUSH ONETIME ONE Stop: 11/22/17 10:03 Last Admin: 11/22/17 10:03 Dose: 125 mg Potassium Cl 75mg = (1meq (Otc Product)) 75 mg PO DAILY [facility] Pneumococcal Polyvalent Vaccine (Pneumovax 23) 0.5 ml IM .ONCE ONE Stop: 11/22/17 18:01 - Exam Quality Assessment: Supplemental Oxygen, DVT Prophylaxis General: Alert, Oriented, Cooperative, No Acute Distress HEENT: Pupils Equal, Pupils Reactive, EOMI, Mucous Membr. Moist/[place] Neck: Supple Lungs: Normal Respiratory Effort, Decreased Breath Sounds, Rhonchi (mild right sided ), Wheezing (mild) Cardiovascular: Regular Rate, Regular Rhythm GI/Abdominal Exam: Normal Bowel Sounds, Soft, Non-Tender, No Organomegaly, No Distention, No Abnormal Bruit, No Mass, Pelvis Stable (Female) Exam: Deferred Back Exam: Normal Inspection, Full Range of Motion Extremities: Normal Inspection, Normal Range of Motion, Non-Tender, No Pedal Edema, Normal Capillary Refill Peripheral Pulses: 2+: Posterior Tibial (L), Posterior Tibial (R), Dorsalis Pedis (L), Dorsalis Pedis (R), 3+: Radial (L), Radial (R) Skin: Warm, Dry, Intact Neurological: No New Focal Deficit Psy/Mental Status: Alert, Normal Affect, Normal Mood - Problem List & Annotations (1) Pneumonia SNOMED Code(s): 058900586 Code(s): J18.9 - PNEUMONIA, UNSPECIFIED ORGANISM Status: Acute Priority: High Current Visit: Yes Qualifiers: Pneumonia type: due to unspecified organism Laterality: right Lung location: lower lobe of lung Qualified Code(s): J18.1 - Lobar pneumonia, unspecified organism (2) Acidosis SNOMED Code(s): 16473047 Code(s): E87.2 - ACIDOSIS Status: Acute Priority: High Current Visit: Yes (3) Altered mental status SNOMED Code(s): 056961187 Code(s): R41.82 - ALTERED MENTAL STATUS, UNSPECIFIED Status: Resolved Priority: High Current Visit: Yes Qualifiers: Altered mental status type: disorientation Qualified Code(s): R41.0 - Disorientation, unspecified (4) Hypoxia SNOMED Code(s): 192235696 Code(s): R09.02 - HYPOXEMIA Status: Acute Priority: High Current Visit : Yes (5) Tobacco use disorder SNOMED Code(s): 982246127 Code(s): F17.200 - NICOTINE DEPENDENCE, UNSPECIFIED, UNCOMPLICATED Status: Chronic Priority: Medium Current Visit: Yes (6) Anxiety SNOMED Code(s): 59703066 Code(s): F41.9 - ANXIETY DISORDER, UNSPECIFIED Status: Chronic Priority: Low Current Visit: Yes (7) HLD (hyperlipidemia) SNOMED Code(s): 34213102 Code(s): E78.5 - HYPERLIPIDEMIA, UNSPECIFIED Status: Chronic Priority: Low Current Visit: No Qualifiers: Hyperlipidemia type: unspecified Qualified Code(s): E78.5 - Hyperlipidemia , unspecified (8) HTN (hypertension) SNOMED Code(s): 58378890 Code(s): I10 - ESSENTIAL (PRIMARY) HYPERTENSION Status: Acute Current Visit: Yes (9) Insomnia SNOMED Code(s): 981995074 Code(s): G47.00 - INSOMNIA, UNSPECIFIED Status: Acute Current Visit: Yes (10) Arthritis SNOMED Code(s): 3052351 Code(s): M19.90 - UNSPECIFIED OSTEOARTHRITIS, UNSPECIFIED SITE Status: Chronic Priority: Low Current Visit: No - Problem List Review Problem List Initiated/Reviewed/Updated: Yes - My Orders Last 24 Hours: My Active Orders 11/22/17 12:40 Bedrest Bedside Commode [RC] ASDIRECTED Height and Weight [RC] 0400 VTE/DVT Education [RC] Vital Signs [RC] Q4HR Consult to Case Management [CONS] Routine Consult to Accounts Receivable Collector [CONS] Routine Respiratory Care Assess and Treatment [CONS] Routine Acetaminophen [Tylenol] 650 mg RECTAL Q4H PRN Resuscitation Status Routine 11/22/17 12:41 Cardiac Monitoring [RC] CONTINUOUS Intake and Output [RC] 0400,1600 Pulse Oximetry [RC] CONTINUOUS Antiembolic Hose [OM.PC] Per Unit Routine 11/22/17 12:42 Antiembolic Devices [RC] QSHIFT 11/22/17 12:45 Magnesium Rep Pharmacy to Dose [Pharmacy to Dose - Magnesium Replacement] 0 dose .XX ASDIRECTED PRN Metoprolol Tartrate [Lopressor] 5 mg IVPUSH Q4H PRN Nicotine [Habitrol] 21 mg TRDERM DAILY Potassium Rep Pharmacy to Dose [Pharmacy to Dose - Potassium Replacement] 0 dose .XX ASDIRECTED PRN hydrALAZINE [Apresoline] 10 mg IVPUSH Q6H PRN 11/22/17 12:56 Aspiration Precautions [RC] ASDIRECTED One To One Therapy [BH] Routine 11/22/17 12:57 Precautions [COMM] Routine 11/22/17 15:00 Albuterol/Ipratropium [DuoNeb 3.0-0.5 MG/3 ML] 3 ml NEB Q6HRRT 11/22/17 16:04 CULTURE URINE [RM] Routine STREP PNEUMONIAE ANTIGEN [MREF] Routine 11/22/17 18:00 methylPREDNISolone Sod Succ [Solu-MEDROL] 125 mg IVPUSH Q8H 11/22/17 21:00 Budesonide [Pulmicort] 0.5 mg NEB BID@0900,2100 Zolpidem [Ambien] 10 mg PO BEDTIME busPIRone [Buspar] 2.5 mg PO BID 11/22/17 Dinner Soft Diet [DIET] 11/23/17 09:00 Enoxaparin [Lovenox] 40 mg SUBCUT DAILY Losartan [Cozaar] 100 mg PO DAILY Magnesium Oxide 200 mg PO DAILY Multivitamins/Min/FA/Lut/Zeax [ICaps MV] 1 tab PO DAILY Remove Patch 0 ea TRDERM DAILY Simvastatin [Zocor] 20 mg PO DAILY 11/23/17 09:45 Sodium Chloride 0.9% [Normal Saline] 1,000 ml IV ASDIRECTED 11/24/17 05:11 BASIC METABOLIC PANEL,BMP [CHEM] AM CBC WITH AUTO DIFF [HEME] AM CRP [C-REACTIVE PROTEIN] [CHEM] AM MAGNESIUM [CHEM] AM PRO B-TYPE NATRIUR PEPT,BNPPRO [CHEM] Routine 11/24/17 08:00 Chest 2V [CR] Routine 11/24/17 10:00 Levofloxacin/Dextrose 5%-Water [Levaquin in D5W 750 MG/150 ML] 750 mg Premix Bag 1 bag IV Q48H 11/25/17 05:11 BASIC METABOLIC PANEL,BMP [CHEM] AM CBC WITH AUTO DIFF [HEME] AM CRP [C-REACTIVE PROTEIN] [CHEM] AM MAGNESIUM [CHEM] AM 11/26/17 05:11 BASIC METABOLIC PANEL,BMP [CHEM] AM CBC WITH AUTO DIFF [HEME] AM CRP [C-REACTIVE PROTEIN] [CHEM] AM MAGNESIUM [CHEM] AM - Plan Plan:: I/P: Acute: Pneumonia -Fever, chills, dyspnea, and cough for past 3-4 days -EMS found cyanotic with saturations in the 50's and AMS -Risk factor: 40+ year smoking history, no diagnosed respiratory diseases -CXR: Increased density bilaterally but more prominent on right side -Levaquin started in ED - continue -Azithromycin added -WBC 14.17-->11.45, CRP 38.5-->29.3 -Lactic acid 1.3 -RT/IS/Acapella -Solu-medrol -Pulmicort -Duonebs Q6hr -Blood cultures negative after one day -Sputum culture once mentation improves Tobacco use disorder -Reportedly smokes 1/2 pack daily for 40+ years -Hx/o ETOH abuse -Discussed importance of quitting, offered nicotine patch at discharge -21mg patch gave pt headache, will decrease to 14mg -Discussed resources for quitting including PCP, [place] quitline -Patient is hesitant for now, will continue to offer encouragement and update PCP Resolved: AMS -Likely 2/2 above with acidosis -Cyanotic and AMS with EMS -Family reports normal mental status at baseline -ABG shows respiratory acidosis, repeat ordered - improving -Pulling at EKG wires, attempting to pull off BIPAP -Alert; knows first name but not last, knows hospital but not town -HAYDEN working to establish power of criminal defense attorney with son/brother -BIPAP, monitor need for intubation -UA - unimpressive -NPO for now-->Increase to soft diet - IV fluids Chronic: Anxiety Depression HLD HTN - PRN IV meds Insomnia Hypokalemia - IV repletion Hypomagnesemia - IV repletion Tobacco use disorder Plan: Admit to ICU--> downgrade to medical floor CM/SW PT/OT when more responsive Aspiration/fall precautions DVT prophylaxis: JOSE Vanegas and lovenox 1:1 nursing care until mentation improves -> discontinue Other orders as indicated above Home meds Recommend PFTs after discharge and resolution of symptoms for baseline Routine AM labs Code status: Full code; PCP AWILDA Rosado here at [facility]
[2017-11-23] MEDS: methylPREDNISolone Sodium Succinate 40 MG/1 ML SDV IVPUSH SCH (11:27)
[2017-11-23] MEDS: Ibuprofen 600 MG Tab PO PRN (12:00)
[2017-11-23] MEDS ORDERED: Nicotine 14 MG/24 Hr Patch TRDERM ONE (13:35)
[2017-11-23] MEDS: Azithromycin 500 MG in Sodium Chloride 0.9% 250 ML IV SCH (14:27)
[2017-11-23] MEDS ORDERED: Zolpidem 5 MG Tab PO SCH (21:00)
[2017-11-23] MEDS: guaiFENesin 600 MG Tab.ER PO SCH (21:02)
[2017-11-24] MEDS: Sodium Chloride 0.9% 10 ML Syringe FLUSH PRN (00:44)
[2017-11-24] MEDS: methylPREDNISolone Sodium Succinate 40 MG/1 ML SDV IVPUSH SCH ×3 (00:44→22:21)
[2017-11-24] MEDS: Albuterol/Ipratropium 3.0-0.5 MG/3 ML Neb Soln NEB SCH ×4 (03:12→21:47)
[2017-11-24] MEDS ORDERED: Bumetanide 1 MG/4 ML MDV IVPUSH ONE (07:00)
[2017-11-24] MEDS: Budesonide 0.5 MG/2 ML Neb Susp NEB SCH ×2 (08:28→21:47)
--- NOTE | 2017-11-24 08:42 | CR ---
Chest: Two views of the chest were obtained. Comparison: Prior chest x-ray of 11/22/17. Atelectasis is seen within the left lung base. Lung markings are diffusely increased mostly on the right side of the chest with findings being slightly improved from previous exam. Heart size and mediastinum are normal. Bony structures are within normal limits for the patient's age. Impression: 1. Increased right sided lung markings slightly improved from previous exam. 2. New area of atelectasis within the left base. Diagnostic code #3
[2017-11-24] MEDS ORDERED: Levofloxacin/Dextrose 5%-Water 750 MG in Premix Bag 1 BAG IV SCH (10:00)
[2017-11-24] MEDS: guaiFENesin 600 MG Tab.ER PO SCH ×2 (10:08→10:42)
[2017-11-24] MEDS: Enoxaparin 40 MG/0.4 ML Syringe SUBCUT SCH (10:09)
[2017-11-24] MEDS: Multivitamins with Minerals/Folic Acid/Lutein/Zeaxanth Tab PO SCH (10:09)
[2017-11-24] MEDS: Losartan 100 MG Tab PO SCH (10:10)
[2017-11-24] MEDS: busPIRone 5 MG Tab PO SCH ×2 (10:10→22:19)
[2017-11-24] MEDS: Magnesium Oxide 400 MG Tab PO SCH (10:11)
[2017-11-24] MEDS: amLODIPine 10 MG Tab PO SCH (10:12)
[2017-11-24] MEDS: Simvastatin 20 MG Tab PO SCH (10:15)
--- NOTE | 2017-11-24 10:59 | PCM.PN ---
- General Info Date of Service: 11/24/17 Admission Dx/Problem (Free Text): Admission Diagnosis/Problem Admission Diagnosis/Problem Pneumonia Subjective Update: In to see Jessica today. Nursing reports her oxygen saturations were dropping overnight and she was started on a venturi mask. After this she became somewhat more confused. She was switched to 5L via NC. Nursing has weaned her down to 3L for now with saturations in the low 90's. Nursing was instructed to be very cautious with oxygen as patient is likely retaining CO2 again. ABG ordered. She is A&Ox3. She remembers our conversation from yesterday. She is refusing her nicotine patches today. She is somewhat sleepy but states she did not sleep well last night. We have discontinued her ambien since Functional Status: Reports: Pain Controlled, Tolerating Diet, Ambulating, Urinating, Incentive Spirometry. Denies: New Symptoms - Review of Systems General: Reports: Weakness, Fatigue, Malaise. Denies: Fever, Chills, Night Sweats HEENT: Reports: No Symptoms. Denies: Dysphasia, Ear Pain, Eye Pain, Headaches, Post Nasal Drip, Sore Throat Pulmonary: Reports: Shortness of Breath, Cough, Sputum (unable to cough up), Wheezing Gastrointestinal: Reports: No Symptoms, Diarrhea (chronic ). Denies: Abdominal Pain, Constipation Genitourinary: Reports: No Symptoms Musculoskeletal: Reports: No Symptoms Skin: Reports: No Symptoms Neurological: Reports: No Symptoms Psychiatric: Reports: No Symptoms - Patient Data Vitals - Most Recent: Last Vital Signs Temp 97.6 F 11/24/17 08:00 Pulse 81 11/24/17 08:00 Resp 20 11/24/17 08:00 BP 109/63 11/24/17 10:12 Pulse Ox 96 11/24/17 09:57 Weight - Most Recent: 156 lb 14.4 oz I&O - Last 24 Hours: Intake & Output 11/23/17 11/24/17 11/24/17 22:59 06:59 14:59 Intake Total 965 1150 600 Output Total 200 Balance 965 1150 400 Lab Results Last 24 Hours: Laboratory Results - last 24 hr 11/24/17 11/24/17 11/24/17 Range/Units 05:31 05:31 05:31 WBC 15.83 H (3.98-10.04) K/mm3 RBC 4.35 (3.98-5.22) M/mm3 Hgb 12.3 (11.2-15.7) gm/L Hct 41.5 (34.1-44.9) % MCV 95.4 H (79.4-94.8) fl MCH 28.3 (25.6-32.2) pg MCHC 29.6 L (32.2-35.5) g/dl RDW Std Deviation 56.0 H (36.4-46.3) fL Plt Count 295 (182-369) K/mm3 MPV 10.2 (9.4-12.3) fl Neut % (Auto) 89.4 H (34.0-71.1) % Lymph % (Auto) 2.7 L (19.3-51.7) % Cass % (Auto) 4.3 L (4.7-12.5) % Eos % (Auto) 0 L (0.7-5.8) Baso % (Auto) 0.1 (0.1-1.2) % Neut # (Auto) 14.16 H (1.56-6.13) K/mm3 Lymph # (Auto) 0.42 L (1.18-3.74) K/mm3 Cass # (Auto) 0.68 H (0.24-0.36) K/mm3 Eos # (Auto) 0.00 L (0.04-0.36) K/mm3 Baso # (Auto) 0.02 (0.01-0.08) K/mm3 Manual Slide Review Abnormal smear Sodium 145 (136-145) mEq/L Potassium 4.5 (3.5-5.1) mEq/L Chloride 109 H (98-107) mEq/L Carbon Dioxide 30 (21-32) mEq/L Anion Gap 10.5 (5-15) BUN 73 H (7-18) mg/dL Creatinine 1.4 H (0.55-1.02) mg/dL Est Cr Clr Drug Dosing 34.46 mL/min Estimated GFR (MDRD) 38 (>60) mL/min BUN/Creatinine Ratio 52.1 H (14-18) Glucose 198 H (80-115) mg/dL Calcium 9.3 (8.5-10.1) mg/dL Magnesium 3.1 H (1.8-2.4) mg/dl C-Reactive Protein 12.9 H* (<1.0) mg/dL NT-Pro-B Natriuret Pep 425 H (0-125) pg/mL Erasmo Results Last 24 Hours: Microbiology 11/22/17 16:04 Streptococcus pneumoniae Antigen (M - Final Urine Med Orders - Current: Current Medications Acetaminophen (Tylenol) 650 mg RECTAL Q4H PRN PRN Reason: Pain (mild 1-3) Albuterol/Ipratropium (Duoneb 3.0-0.5 Mg/3 Ml) 3 ml NEB Q6HRRT [facility] Last Admin: 11/24/17 08:28 Dose: 3 ml Amlodipine Besylate (Norvasc) 10 mg PO DAILY [facility] Last Admin: 11/24/17 10:12 Dose: 10 mg Budesonide (Pulmicort) 0.5 mg NEB BID@0900,2100 [facility] Last Admin: 11/24/17 08:28 Dose: 0.5 mg Buspirone HCl (Buspar) 2.5 mg PO BID [facility] Last Admin: 11/24/17 10:10 Dose: 2.5 mg Enoxaparin Sodium (Lovenox) 40 mg SUBCUT DAILY [facility] Last Admin: 11/24/17 10:09 Dose: 40 mg Hydralazine HCl (Apresoline) 10 mg IVPUSH Q6H PRN PRN Reason: Hypertension Levofloxacin/Dextrose 750 mg/ (Premix) 150 mls @ 100 mls/hr IV Q48H [facility] Last Admin: 11/24/17 10:25 Dose: 100 mls/hr Azithromycin 500 mg/ Sodium (Chloride) 250 mls @ 250 mls/hr IV Q24H [facility] Last Admin: 11/23/17 14:27 Dose: 250 mls/hr Ibuprofen (Motrin) 600 mg PO Q6H PRN PRN Reason: Pain/Fever Last Admin: 11/23/17 12:00 Dose: 600 mg Losartan Potassium (Cozaar) 100 mg PO DAILY [facility] Last Admin: 11/24/17 10:10 Dose: 100 mg Magnesium Oxide (Magnesium Oxide) 200 mg PO DAILY [facility] Last Admin: 11/24/17 10:11 Dose: 200 mg Magnesium Sulfate (Pharmacy To Dose - Magnesium Replacement) 0 dose .XX ASDIRECTED PRN PRN Reason: RX TO WATCH MAG LEVELS Methylprednisolone Sodium Succinate (Solu-Medrol) 80 mg IVPUSH Q12H [facility] Last Admin: 11/24/17 10:06 Dose: 80 mg Metoprolol Tartrate (Lopressor) 5 mg IVPUSH Q4H PRN PRN Reason: Tachycardia Miscellaneous Information (Remove Patch) 0 ea TRDERM DAILY [facility] Last Admin: 11/24/17 10:14 Dose: Not Given Potassium Chloride (Pharmacy To Dose - Potassium Replacement) 0 dose .XX ASDIRECTED PRN PRN Reason: RX TO WATCH K LEVELS Simvastatin (Zocor) 20 mg PO DAILY [facility] Last Admin: 11/24/17 10:15 Dose: 20 mg Sodium Chloride (Saline Flush) 10 ml FLUSH ASDIRECTED PRN PRN Reason: Keep Vein Open Last Admin: 11/24/17 00:44 Dose: 10 ml Vit A/Vit C/Vit E/Selen/Cu/Zn/Lutei (Icaps Mv) 1 tab PO DAILY [facility] Last Admin: 11/24/17 10:09 Dose: 1 tab Discontinued Medications Albuterol (Proventil Neb Soln) 2.5 mg NEB ONETIME ONE Stop: 11/22/17 11:09 Last Admin: 11/22/17 11:24 Dose: 2.5 mg Albuterol/Ipratropium (Duoneb 3.0-0.5 Mg/3 Ml) 3 ml NEB ONETIME ONE Stop: 11/22/17 09:17 Last Admin: 11/22/17 09:22 Dose: 3 ml Albuterol/Ipratropium (Duoneb 3.0-0.5 Mg/3 Ml) Confirm Administered Dose 3 ml .ROUTE .STK-MED ONE Stop: 11/22/17 09:23 Last Admin: 11/22/17 09:22 Dose: Not Given Budesonide (Pulmicort) 0.5 mg NEB BIDRT [facility] Bumetanide (Bumex) 0.5 mg IVPUSH ONETIME ONE Stop: 11/24/17 07:01 Last Admin: 11/24/17 06:30 Dose: 0.5 mg Guaifenesin (Mucinex) 1,200 mg PO BID [facility] Last Admin: 11/24/17 10:42 Dose: Not Given Levofloxacin/Dextrose 750 mg/ (Premix) 150 mls @ 100 mls/hr IV ONETIME ONE Stop: 11/22/17 11:05 Last Admin: 11/22/17 09:55 Dose: 100 mls/hr Sodium Chloride (Normal Saline) Confirm Administered Dose 1,000 mls @ as directed .ROUTE .STK-MED ONE Stop: 11/22/17 11:20 Last Admin: 11/22/17 11:33 Dose: Not Given Sodium Chloride (Normal Saline) 500 mls @ 999 mls/hr IV .BOLUS ONE Stop: 11/22/17 12:03 Last Admin: 11/22/17 11:35 Dose: 999 mls/hr Sodium Chloride (Normal Saline) 1,000 mls @ 100 mls/hr IV ASDIRECTED [place] Stop: 11/24/17 05:00 Last Admin: 11/23/17 12:47 Dose: 100 mls/hr Methylprednisolone Sodium Succinate (Solu-Medrol) 125 mg IM ONETIME ONE Stop: 11/22/17 09:17 Last Admin: 11/23/17 10:14 Dose: Not Given Methylprednisolone Sodium Succinate (Solu-Medrol) 125 mg IVPUSH ONETIME ONE Stop: 11/22/17 10:03 Last Admin: 11/22/17 10:03 Dose: 125 mg Methylprednisolone Sodium Succinate (Solu-Medrol) 125 mg IVPUSH Q8H [facility] Last Admin: 11/23/17 10:49 Dose: Not Given Nicotine (Habitrol) 21 mg TRDERM DAILY [facility] Last Admin: 11/23/17 08:52 Dose: 21 mg Nicotine (Habitrol) 14 mg TRDERM ONETIME ONE Stop: 11/23/17 13:36 Last Admin: 11/24/17 00:50 Dose: Not Given Potassium Cl 75mg = (1meq (Otc Product)) 75 mg PO DAILY [facility] Pneumococcal Polyvalent Vaccine (Pneumovax 23) 0.5 ml IM .ONCE ONE Stop: 11/22/17 18:01 Zolpidem Tartrate (Ambien) 10 mg PO BEDTIME [facility] Last Admin: 11/22/17 21:00 Dose: 10 mg Zolpidem Tartrate (Ambien) 5 mg PO BEDTIME [facility] Last Admin: 11/23/17 21:30 Dose: 5 mg - Exam Quality Assessment: Supplemental Oxygen, DVT Prophylaxis General: Alert, Oriented, Cooperative, Mild Distress, Other (somewhat sleepy but responding appropriately ) HEENT: Pupils Equal, Pupils Reactive, EOMI, Mucous Membr. Moist/[place] Neck: Supple, Trachea Midline, No JVD Lungs: Decreased Breath Sounds, Rhonchi (lower lobes ), Wheezing (generalized ) , Other (Tachypneic) GI/Abdominal Exam: Normal Bowel Sounds, Soft, Non-Tender, No Organomegaly, No Distention, No Abnormal Bruit, No Mass, Pelvis Stable (Female) Exam: Deferred Back Exam: Normal Inspection, Full Range of Motion Extremities: Normal Inspection, Normal Range of Motion, Non-Tender, No Pedal Edema, Normal Capillary Refill Peripheral Pulses: 3+: Radial (L), Radial (R), Posterior Tibial (L), Posterior Tibial (R), Dorsalis Pedis (L), Dorsalis Pedis (R) Skin: Warm, Dry, Intact Neurological: No New Focal Deficit Psy/Mental Status: Alert, Normal Affect, Normal Mood - Problem List & Annotations (1) Pneumonia SNOMED Code(s): 541525715 Code(s): J18.9 - PNEUMONIA, UNSPECIFIED ORGANISM Status: Acute Priority: High Current Visit: Yes Qualifiers: Pneumonia type: due to unspecified organism Laterality: right Lung location: lower lobe of lung Qualified Code(s): J18.1 - Lobar pneumonia, unspecified organism (2) Acidosis SNOMED Code(s): 09568347 Code(s): E87.2 - ACIDOSIS Status: Acute Priority: High Current Visit: Yes (3) Altered mental status SNOMED Code(s): 718415042 Code(s): R41.82 - ALTERED MENTAL STATUS, UNSPECIFIED Status: Resolved Priority: High Current Visit: Yes Qualifiers: Altered mental status type: disorientation Qualified Code(s): R41.0 - Disorientation, unspecified (4) Hypoxia SNOMED Code(s): 076045380 Code(s): R09.02 - HYPOXEMIA Status: Acute Priority: High Current Visit : Yes (5) Tobacco use disorder SNOMED Code(s): 395611530 Code(s): F17.200 - NICOTINE DEPENDENCE, UNSPECIFIED, UNCOMPLICATED Status: Chronic Priority: Medium Current Visit: Yes (6) Anxiety SNOMED Code(s): 03474589 Code(s): F41.9 - ANXIETY DISORDER, UNSPECIFIED Status: Chronic Priority: Low Current Visit: Yes (7) HLD (hyperlipidemia) SNOMED Code(s): 38326299 Code(s): E78.5 - HYPERLIPIDEMIA, UNSPECIFIED Status: Chronic Priority: Low Current Visit: No Qualifiers: Hyperlipidemia type: unspecified Qualified Code(s): E78.5 - Hyperlipidemia , unspecified (8) HTN (hypertension) SNOMED Code(s): 09969325 Code(s): I10 - ESSENTIAL (PRIMARY) HYPERTENSION Status: Acute Current Visit: Yes (9) Insomnia SNOMED Code(s): 785410651 Code(s): G47.00 - INSOMNIA, UNSPECIFIED Status: Acute Current Visit: Yes (10) Arthritis SNOMED Code(s): 9861740 Code(s): M19.90 - UNSPECIFIED OSTEOARTHRITIS, UNSPECIFIED SITE Status: Chronic Priority: Low Current Visit: No - Problem List Review Problem List Initiated/Reviewed/Updated: Yes - My Orders Last 24 Hours: My Active Orders 11/23/17 11:00 methylPREDNISolone Sod Succ [Solu-MEDROL] 80 mg IVPUSH Q12H 11/23/17 13:26 Consult to Occupational Therapy [OT Evaluation and Treatment] [CONS] Routine PT Evaluation and Treatment [CONS] Routine 11/23/17 13:28 Acapella [RT Chest Physiotherapy] [RC] ASDIRECTED RT Incentive Spirometry [RC] ASDIRECTED 11/23/17 13:31 Turn, Cough, Deep Breathe [RC] Q2HWA 11/23/17 13:38 CULTURE SPUTUM + SMEAR [RM] Routine 11/23/17 14:00 Azithromycin [Zithromax] 500 mg Sodium Chloride 0.9% [Normal Saline] 250 ml IV Q24H 11/24/17 10:00 Levofloxacin/Dextrose 5%-Water [Levaquin in D5W 750 MG/150 ML] 750 mg Premix Bag 1 bag IV Q48H 11/24/17 10:51 Ambulate [RC] Q8HR 11/25/17 05:11 BASIC METABOLIC PANEL,BMP [CHEM] AM CBC WITH AUTO DIFF [HEME] AM CRP [C-REACTIVE PROTEIN] [CHEM] AM MAGNESIUM [CHEM] AM 11/26/17 05:11 BASIC METABOLIC PANEL,BMP [CHEM] AM CBC WITH AUTO DIFF [HEME] AM CRP [C-REACTIVE PROTEIN] [CHEM] AM MAGNESIUM [CHEM] AM - Plan Plan:: I/P: Acute: Pneumonia -Fever, chills, dyspnea, and cough for past 3-4 days -EMS found cyanotic with saturations in the 50's and AMS -Risk factor: 40+ year smoking history, no diagnosed respiratory diseases -CXR: Increased density bilaterally but more prominent on right side -Repeat CXR shows improvement right sided pneumonia and new left sided atelectasis -Levaquin started in ED - continue -Azithromycin added -WBC 14.17-->11.45-->15.83, CRP 38.5-->29.3-->12.9 -Lactic acid 1.3 -RT/IS/Acapella -Solu-medrol - decrease -Pulmicort -Duonebs Q6hr -Blood cultures negative after one day -Sputum culture once mentation improves -Suspect undiagnosed COPD Tobacco use disorder -Reportedly smokes 1/2 pack daily for 40+ years -Hx/o ETOH abuse -Discussed importance of quitting, offered nicotine patch at discharge -21mg patch gave pt headache, will decrease to 14mg, patient has been refusing -Discussed resources for quitting including PCP, [place] quitline -Patient is hesitant for now, will continue to offer encouragement and update PCP Resolved: AMS -Likely 2/2 above with acidosis -Cyanotic and AMS with EMS -Family reports normal mental status at baseline -ABG shows respiratory acidosis, repeat ordered - improving -Pulling at EKG wires, attempting to pull off BIPAP -Alert; knows first name but not last, knows hospital but not town - working to establish power of environmental attorney with son/brother -BIPAP, monitor need for intubation -UA - unimpressive -NPO for now-->Increase to soft diet - IV fluids Chronic: Anxiety Depression HLD HTN - PRN IV meds Insomnia Hypokalemia - IV repletion Hypomagnesemia - IV repletion Tobacco use disorder Plan: Admit to ICU--> downgrade to medical floor CM/SW PT/OT Aspiration/fall precautions DVT prophylaxis: JOSE Hose and lovenox 1:1 nursing care until mentation improves -> discontinue Other orders as indicated above Home meds Recommend PFTs after discharge and resolution of symptoms for baseline Routine AM labs Code status: Full code; PCP AWILDA Rosado here at [facility]
[2017-11-24] MEDS ORDERED: Sodium Chloride 0.9% 1,000 ML IV SCH (11:45)
[2017-11-24] MEDS: Azithromycin 500 MG in Sodium Chloride 0.9% 250 ML IV SCH (14:22)
[2017-11-24] MEDS ORDERED: Modafinil 200 MG Tab PO SCH (15:00)
[2017-11-24] MEDS: Ibuprofen 600 MG Tab PO PRN (22:18)
[2017-11-25] MEDS: Albuterol/Ipratropium 3.0-0.5 MG/3 ML Neb Soln NEB SCH ×4 (02:23→21:24)
--- NOTE | 2017-11-25 07:41 | PCM.PN ---
- General Info Date of Service: 11/25/17 Admission Dx/Problem (Free Text): Admission Diagnosis/Problem Admission Diagnosis/Problem Pneumonia Subjective Update: In to see Jessica today. Nursing reports her oxygen saturations were dropping overnight and she was started on a venturi mask. After this she became somewhat more confused. She was switched to 5L via NC. Nursing has weaned her down to 3L for now with saturations in the low 90's. Nursing was instructed to be very cautious with oxygen as patient is likely retaining CO2 again. ABG ordered. She is A&Ox3. She remembers our conversation from yesterday. She is refusing her nicotine patches today. She is somewhat sleepy but states she did not sleep well last night. We have discontinued her ambien since Functional Status: Reports: Pain Controlled, Tolerating Diet, Ambulating, Urinating - Review of Systems General: Denies: Fever, Weakness, Fatigue, Malaise, Chills HEENT: Reports: No Symptoms Pulmonary: Reports: Shortness of Breath. Denies: Cough, Sputum Cardiovascular: Denies: Chest Pain, Palpitations, Dyspnea on Exertion, Lightheadedness Gastrointestinal: Denies: Abdominal Pain, Nausea, Vomiting Genitourinary: Reports: No Symptoms Musculoskeletal: Denies: Neck Pain Skin: Denies: Cyanosis, Mottled, Pallor, Diaphoresis Neurological: Denies: Confusion, Difficulty Walking, Weakness, Gait Disturbance Psychiatric: Denies: Confusion, Depression, Anxiety, Agitation, Hallucinations Systems Review Comment:: She did not sleep well overnight. She tired and exhausted. She was non- compliant with her BIPAP with inconsistent use. Her repeat CO2 via ABG this AM is much better. - Patient Data Vitals - Most Recent: Last Vital Signs Temp 36.2 C 11/25/17 04:46 Pulse 84 11/25/17 04:46 Resp 24 H 11/25/17 04:46 BP 115/65 11/25/17 04:46 Pulse Ox 97 11/25/17 04:46 Weight - Most Recent: 70.443 kg I&O - Last 24 Hours: Intake & Output 11/24/17 11/25/17 11/25/17 22:59 06:59 14:59 Intake Total 620 1475 Output Total 550 600 Balance 70 875 Lab Results Last 24 Hours: Laboratory Results - last 24 hr 11/24/17 11/24/17 11/25/17 Range/Units 05:31 14:30 05:45 WBC 13.26 H (3.98-10.04) K/mm3 RBC 4.10 (3.98-5.22) M/mm3 Hgb 11.9 (11.2-15.7) gm/L Hct 39.2 (34.1-44.9) % MCV 95.6 H (79.4-94.8) fl MCH 29.0 (25.6-32.2) pg MCHC 30.4 L (32.2-35.5) g/dl RDW Std Deviation 54.8 H (36.4-46.3) fL Plt Count 290 (182-369) K/mm3 MPV 9.9 (9.4-12.3) fl Neut % (Auto) 79.9 H (34.0-71.1) % Lymph % (Auto) 5.0 L (19.3-51.7) % [place] % (Auto) 6.5 (4.7-12.5) % Eos % (Auto) 0 L (0.7-5.8) Baso % (Auto) 0.5 (0.1-1.2) % Neut # (Auto) 10.61 H (1.56-6.13) K/mm3 Lymph # (Auto) 0.66 L (1.18-3.74) K/mm3 [place] # (Auto) 0.86 H (0.24-0.36) K/mm3 Eos # (Auto) 0.00 L (0.04-0.36) K/mm3 Baso # (Auto) 0.06 (0.01-0.08) K/mm3 Manual Slide Review Abnormal smear Puncture Site 1.7 ABG pH 7.25 L (7.35-7.45) ABG pCO2 70.4 H* (35.0-45.0) mmHg ABG pO2 58.0 L (80.0-100.0) mmHg ABG HCO3 30.1 H (22.0-26.0) meq/L ABG O2 Saturation 89.5 L (96.0-97.0) % ABG Base Excess 1.0 (-2-2.0) Ritesh Test Positive O2 Delivery Device Nasal cannula Oxygen Flow Rate 2.5 FiO2 0.00 L (21.00-100.00) % Sodium (136-145) mEq/L Potassium (3.5-5.1) mEq/L Chloride (98-107) mEq/L Carbon Dioxide (21-32) mEq/L Anion Gap (5-15) BUN (7-18) mg/dL Creatinine (0.55-1.02) mg/dL Est Cr Clr Drug Dosing mL/min Estimated GFR (MDRD) (>60) mL/min BUN/Creatinine Ratio (14-18) Glucose (80-115) mg/dL Calcium (8.5-10.1) mg/dL Magnesium (1.8-2.4) mg/dl C-Reactive Protein (<1.0) mg/dL NT-Pro-B Natriuret Pep 425 H (0-125) pg/mL 11/25/17 Range/Units 05:45 WBC (3.98-10.04) K/mm3 RBC (3.98-5.22) M/mm3 Hgb (11.2-15.7) gm/L Hct (34.1-44.9) % MCV (79.4-94.8) fl MCH (25.6-32.2) pg MCHC (32.2-35.5) g/dl RDW Std Deviation (36.4-46.3) fL Plt Count (182-369) K/mm3 MPV (9.4-12.3) fl Neut % (Auto) (34.0-71.1) % Lymph % (Auto) (19.3-51.7) % [place] % (Auto) (4.7-12.5) % Eos % (Auto) (0.7-5.8) Baso % (Auto) (0.1-1.2) % Neut # (Auto) (1.56-6.13) K/mm3 Lymph # (Auto) (1.18-3.74) K/mm3 [place] # (Auto) (0.24-0.36) K/mm3 Eos # (Auto) (0.04-0.36) K/mm3 Baso # (Auto) (0.01-0.08) K/mm3 Manual Slide Review Puncture Site ABG pH (7.35-7.45) ABG pCO2 (35.0-45.0) mmHg ABG pO2 (80.0-100.0) mmHg ABG HCO3 (22.0-26.0) meq/L ABG O2 Saturation (96.0-97.0) % ABG Base Excess (-2-2.0) Ritesh Test O2 Delivery Device Oxygen Flow Rate FiO2 (21.00-100.00) % Sodium 146 H (136-145) mEq/L Potassium 4.4 (3.5-5.1) mEq/L Chloride 109 H (98-107) mEq/L Carbon Dioxide 31 (21-32) mEq/L Anion Gap 10.4 (5-15) BUN 59 H (7-18) mg/dL Creatinine 1.1 H (0.55-1.02) mg/dL Est Cr Clr Drug Dosing 43.87 mL/min Estimated GFR (MDRD) 50 (>60) mL/min BUN/Creatinine Ratio 53.6 H (14-18) Glucose 169 H (80-115) mg/dL Calcium 9.3 (8.5-10.1) mg/dL Magnesium 2.6 H (1.8-2.4) mg/dl C-Reactive Protein 6.4 H* (<1.0) mg/dL NT-Pro-B Natriuret Pep (0-125) pg/mL Erasmo Results Last 24 Hours: Microbiology 11/22/17 16:04 Urine Culture - Final Urine, Clean Catch MIXED MAGO SUGGESTIVE OF CONTAMINATION. 11/22/17 16:04 Streptococcus pneumoniae Antigen (M - Final Urine Med Orders - Current: Current Medications Acetaminophen (Tylenol) 650 mg RECTAL Q4H PRN PRN Reason: Pain (mild 1-3) Albuterol/Ipratropium (Duoneb 3.0-0.5 Mg/3 Ml) 3 ml NEB Q6HRRT [facility] Last Admin: 11/25/17 02:23 Dose: 3 ml Amlodipine Besylate (Norvasc) 10 mg PO DAILY [facility] Last Admin: 11/24/17 10:12 Dose: 10 mg Budesonide (Pulmicort) 0.5 mg NEB BID@0900,2100 [facility] Last Admin: 11/24/17 21:47 Dose: 0.5 mg Buspirone HCl (Buspar) 2.5 mg PO BID [facility] Last Admin: 11/24/17 22:19 Dose: 2.5 mg Enoxaparin Sodium (Lovenox) 40 mg SUBCUT DAILY [facility] Last Admin: 11/24/17 10:09 Dose: 40 mg Hydralazine HCl (Apresoline) 10 mg IVPUSH Q6H PRN PRN Reason: Hypertension Levofloxacin/Dextrose 750 mg/ (Premix) 150 mls @ 100 mls/hr IV Q48H [facility] Last Admin: 11/24/17 10:25 Dose: 100 mls/hr Azithromycin 500 mg/ Sodium (Chloride) 250 mls @ 250 mls/hr IV Q24H [facility] Last Admin: 11/24/17 14:22 Dose: 250 mls/hr Ibuprofen (Motrin) 600 mg PO Q6H PRN PRN Reason: Pain/Fever Last Admin: 11/24/17 22:18 Dose: 600 mg Losartan Potassium (Cozaar) 100 mg PO DAILY [facility] Last Admin: 11/24/17 10:10 Dose: 100 mg Magnesium Oxide (Magnesium Oxide) 200 mg PO DAILY [facility] Last Admin: 11/24/17 10:11 Dose: 200 mg Magnesium Sulfate (Pharmacy To Dose - Magnesium Replacement) 0 dose .XX ASDIRECTED PRN PRN Reason: RX TO WATCH MAG LEVELS Methylprednisolone Sodium Succinate (Solu-Medrol) 40 mg IVPUSH Q12H [facility] Last Admin: 11/24/17 22:21 Dose: 40 mg Metoprolol Tartrate (Lopressor) 5 mg IVPUSH Q4H PRN PRN Reason: Tachycardia Miscellaneous Information (Remove Patch) 0 ea TRDERM DAILY [facility] Last Admin: 11/24/17 10:14 Dose: Not Given Modafinil (Provigil) 50 mg PO DAILY [facility] Potassium Chloride (Pharmacy To Dose - Potassium Replacement) 0 dose .XX ASDIRECTED PRN PRN Reason: RX TO WATCH K LEVELS Simvastatin (Zocor) 20 mg PO DAILY [facility] Last Admin: 11/24/17 10:15 Dose: 20 mg Sodium Chloride (Saline Flush) 10 ml FLUSH ASDIRECTED PRN PRN Reason: Keep Vein Open Last Admin: 11/24/17 00:44 Dose: 10 ml Vit A/Vit C/Vit E/Selen/Cu/Zn/Lutei (Icaps Mv) 1 tab PO DAILY [facility] Last Admin: 11/24/17 10:09 Dose: 1 tab Discontinued Medications Albuterol (Proventil Neb Soln) 2.5 mg NEB ONETIME ONE Stop: 11/22/17 11:09 Last Admin: 11/22/17 11:24 Dose: 2.5 mg Albuterol/Ipratropium (Duoneb 3.0-0.5 Mg/3 Ml) 3 ml NEB ONETIME ONE Stop: 11/22/17 09:17 Last Admin: 11/22/17 09:22 Dose: 3 ml Albuterol/Ipratropium (Duoneb 3.0-0.5 Mg/3 Ml) Confirm Administered Dose 3 ml .ROUTE .STK-MED ONE Stop: 11/22/17 09:23 Last Admin: 11/22/17 09:22 Dose: Not Given Budesonide (Pulmicort) 0.5 mg NEB BIDRT [facility] Bumetanide (Bumex) 0.5 mg IVPUSH ONETIME ONE Stop: 11/24/17 07:01 Last Admin: 11/24/17 06:30 Dose: 0.5 mg Guaifenesin (Mucinex) 1,200 mg PO BID [facility] Last Admin: 11/24/17 10:42 Dose: Not Given Levofloxacin/Dextrose 750 mg/ (Premix) 150 mls @ 100 mls/hr IV ONETIME ONE Stop: 11/22/17 11:05 Last Admin: 11/22/17 09:55 Dose: 100 mls/hr Sodium Chloride (Normal Saline) Confirm Administered Dose 1,000 mls @ as directed .ROUTE .STK-MED ONE Stop: 11/22/17 11:20 Last Admin: 11/22/17 11:33 Dose: Not Given Sodium Chloride (Normal Saline) 500 mls @ 999 mls/hr IV .BOLUS ONE Stop: 11/22/17 12:03 Last Admin: 11/22/17 11:35 Dose: 999 mls/hr Sodium Chloride (Normal Saline) 1,000 mls @ 100 mls/hr IV ASDIRECTED [facility] Stop: 11/24/17 05:00 Last Admin: 11/23/17 12:47 Dose: 100 mls/hr Sodium Chloride (Normal Saline) 1,000 mls @ 100 mls/hr IV ASDIRECTED [facility] Stop: 11/24/17 21:44 Last Admin: 11/24/17 13:19 Dose: 100 mls/hr Methylprednisolone Sodium Succinate (Solu-Medrol) 125 mg IM ONETIME ONE Stop: 11/22/17 09:17 Last Admin: 11/23/17 10:14 Dose: Not Given Methylprednisolone Sodium Succinate (Solu-Medrol) 125 mg IVPUSH ONETIME ONE Stop: 11/22/17 10:03 Last Admin: 11/22/17 10:03 Dose: 125 mg Methylprednisolone Sodium Succinate (Solu-Medrol) 125 mg IVPUSH Q8H [facility] Last Admin: 11/23/17 10:49 Dose: Not Given Methylprednisolone Sodium Succinate (Solu-Medrol) 80 mg IVPUSH Q12H [facility] Last Admin: 11/24/17 10:06 Dose: 80 mg Modafinil (Provigil) 50 mg PO DAILY [facility] Last Admin: 11/24/17 18:47 Dose: 50 mg Nicotine (Habitrol) 21 mg TRDERM DAILY [facility] Last Admin: 11/23/17 08:52 Dose: 21 mg Nicotine (Habitrol) 14 mg TRDERM ONETIME ONE Stop: 11/23/17 13:36 Last Admin: 11/24/17 00:50 Dose: Not Given Potassium Cl 75mg = (1meq (Otc Product)) 75 mg PO DAILY [facility] Pneumococcal Polyvalent Vaccine (Pneumovax 23) 0.5 ml IM .ONCE ONE Stop: 11/22/17 18:01 Zolpidem Tartrate (Ambien) 10 mg PO BEDTIME [facility] Last Admin: 11/22/17 21:00 Dose: 10 mg Zolpidem Tartrate (Ambien) 5 mg PO BEDTIME [facility] Last Admin: 11/23/17 21:30 Dose: 5 mg - Exam Quality Assessment: Supplemental Oxygen General: Alert, Cooperative, No Acute Distress, Other (on BIPAP) HEENT: Pupils Equal, Pupils Reactive, EOMI, Mucous Membr. Moist/Ribera Neck: Supple, Trachea Midline, No JVD Lungs: Normal Respiratory Effort, Decreased Breath Sounds, Rhonchi Cardiovascular: Regular Rate, Regular Rhythm GI/Abdominal Exam: Normal Bowel Sounds, Soft, Non-Tender, No Organomegaly, No Distention, No Abnormal Bruit (Female) Exam: Deferred Back Exam: Normal Inspection, Decreased Range of Motion Extremities: Normal Inspection, Normal Range of Motion, Non-Tender, No Pedal Edema, Normal Capillary Refill Peripheral Pulses: 2+: Dorsalis Pedis (L), Dorsalis Pedis (R) Skin: Warm, Dry, Intact Neurological: No New Focal Deficit Psy/Mental Status: Alert, Normal Affect, Normal Mood - Problem List Review Problem List Initiated/Reviewed/Updated: Yes - My Orders Last 24 Hours: My Active Orders 11/24/17 19:42 Admission Status [Patient Status] [ADT] Routine Cardiac Monitoring [RC] . DIRECTED 11/25/17 09:00 Modafinil [Provigil] 50 mg PO DAILY - Plan Plan:: I/P: Acute: Respiratory Failure - 2/2 COPD and PNA - Carries a hx/o long hx/o heavy smoking - PRN BIPAP with supplemental O2 - Non-compliant initially with BIPAP; encourage to use it to avoid possible intubation Pneumonia -Fever, chills, dyspnea, and cough for past 3-4 days -EMS found cyanotic with saturations in the 50's and AMS -Risk factor: 40+ year smoking history, no diagnosed respiratory diseases -CXR: Increased density bilaterally but more prominent on right side -Repeat CXR shows improvement right sided pneumonia and new left sided atelectasis -Continue Levaquin 750 mg IV daily; D/c Azithromycin -WBC 14.17-->11.45-->15.83--> 13.26, CRP 38.5-->29.3-->12.9--> 6.4 -Lactic acid 1.3 -Continue RT/IS/Acapella/Pulmicort/Steroids/Bronchodilators -Blood cultures negative after 3 days -Sputum culture once mentation improves Probable COPD Exacerbation - Caries a hx/o heavy smoking - Continue Steroids/Bronchodilators/Muscle Relaxant and Supplemental O2 - Unable to perform PFT due to PNA; consider outpatient Tobacco use disorder -Reportedly smokes 1/2 pack daily for 40+ years -Hx/o ETOH abuse -Discussed importance of quitting, offered nicotine patch at discharge -21mg patch gave pt headache, will decrease to 14mg, patient has been refusing -Discussed resources for quitting including PCP, [place] quitline -Patient is hesitant for now, will continue to offer encouragement and update PCP Resolved: AMS -Likely 2/2 above with acidosis -Cyanotic and AMS with EMS -Family reports normal mental status at baseline -ABG shows respiratory acidosis, repeat ordered - improving -Pulling at EKG wires, attempting to pull off BIPAP -Alert; knows first name but not last, knows hospital but not town - working to establish power of foreman or supervisor and operator with son/brother -BIPAP, monitor need for intubation -UA - unimpressive -NPO for now-->Increase to soft diet - IV fluids Chronic: Anxiety Depression HLD HTN - PRN IV meds Insomnia Hypokalemia - IV repletion Hypomagnesemia - IV repletion Tobacco use disorder Plan: She has been upgraded to ICU ; due unstable respiratory status Continue current treatment Routine AM Labs PT/OT eval Aspiration/fall precautions DVT prophylaxis: JOSE Hose and lovenox Other orders as indicated above Recommend PFTs after discharge and resolution of symptoms for baseline SW/CM for d/c planning Code status: Full code; PCP AWILAD Rosado here at [facility] Prognosis is guarded at this point. Spoke to Son and Brother; updated them about her clinical progress. She indicated to me and her nurse, she did not wanna be intubated but after talking to her in front of family members--> she wanna be intubated when indicated.
[2017-11-25] MEDS: Budesonide 0.5 MG/2 ML Neb Susp NEB SCH ×2 (09:16→21:24)
[2017-11-25] MEDS: Multivitamins with Minerals/Folic Acid/Lutein/Zeaxanth Tab PO SCH (10:22)
[2017-11-25] MEDS: Modafinil 200 MG Tab PO SCH (10:22)
[2017-11-25] MEDS: methylPREDNISolone Sodium Succinate 40 MG/1 ML SDV IVPUSH SCH ×2 (10:22→20:29)
[2017-11-25] MEDS: busPIRone 5 MG Tab PO SCH ×2 (10:23→20:29)
[2017-11-25] MEDS: amLODIPine 10 MG Tab PO SCH (10:23)
[2017-11-25] MEDS: Simvastatin 20 MG Tab PO SCH (10:24)
[2017-11-25] MEDS: Magnesium Oxide 400 MG Tab PO SCH (10:24)
[2017-11-25] MEDS: Enoxaparin 40 MG/0.4 ML Syringe SUBCUT SCH (10:25)
[2017-11-25] MEDS: Losartan 100 MG Tab PO SCH (10:25)
[2017-11-25] MEDS: Azithromycin 500 MG in Sodium Chloride 0.9% 250 ML IV SCH (14:41)
[2017-11-25] MEDS: Pantoprazole 40 MG Tab.CR PO SCH (16:25)
[2017-11-25] MEDS: Simethicone 80 MG Tab.Chew PO PRN (16:25)
[2017-11-26] MEDS: Albuterol/Ipratropium 3.0-0.5 MG/3 ML Neb Soln NEB SCH ×4 (02:59→20:14)
[2017-11-26] MEDS: Pantoprazole 40 MG Tab.CR PO SCH ×2 (05:12→16:48)
--- NOTE | 2017-11-26 09:00 | PCM.PN ---
- General Info Date of Service: 11/26/17 Admission Dx/Problem (Free Text): Admission Diagnosis/Problem Admission Diagnosis/Problem Pneumonia Subjective Update: No significant overnight or acute issues. She looks really good clinically this morning. She also feels good and breathing better. Functional Status: Reports: Pain Controlled, Tolerating Diet, Ambulating, Urinating, New Symptoms - Review of Systems General: Denies: Fever, Weakness, Fatigue, Malaise, Chills HEENT: Reports: No Symptoms Pulmonary: Denies: Shortness of Breath, Cough, Sputum Cardiovascular: Denies: Chest Pain, Palpitations, Dyspnea on Exertion Gastrointestinal: Denies: Abdominal Pain, Nausea, Vomiting Genitourinary: Reports: No Symptoms Musculoskeletal: Reports: No Symptoms Skin: Denies: Cyanosis, Mottled, Pallor, Diaphoresis Neurological: Denies: Confusion, Difficulty Walking, Weakness, Gait Disturbance Psychiatric: Denies: Depression, Anxiety, Agitation, Hallucinations - Patient Data Vitals - Most Recent: Last Vital Signs Temp 36.6 C 11/26/17 08:00 Pulse 83 11/26/17 08:00 Resp 19 11/26/17 08:00 BP 134/70 11/26/17 08:00 Pulse Ox 90 L 11/26/17 08:00 Weight - Most Recent: 69.899 kg I&O - Last 24 Hours: Intake & Output 11/25/17 11/26/17 11/26/17 22:59 06:59 14:59 Intake Total 930 500 Output Total 300 300 200 Balance 630 200 -200 Lab Results Last 24 Hours: Laboratory Results - last 24 hr 11/25/17 11/25/17 11/26/17 Range/Units 09:00 14:25 06:00 WBC 11.93 H (3.98-10.04) K/mm3 RBC 4.26 (3.98-5.22) M/mm3 Hgb 12.3 (11.2-15.7) gm/L Hct 39.7 (34.1-44.9) % MCV 93.2 (79.4-94.8) fl MCH 28.9 (25.6-32.2) pg MCHC 31.0 L (32.2-35.5) g/dl RDW Std Deviation 52.0 H (36.4-46.3) fL Plt Count 283 (182-369) K/mm3 MPV 9.9 (9.4-12.3) fl Neut % (Auto) 70.1 (34.0-71.1) % Lymph % (Auto) 9.6 L (19.3-51.7) % [place] % (Auto) 8.1 (4.7-12.5) % Eos % (Auto) 0 L (0.7-5.8) Baso % (Auto) 0.8 (0.1-1.2) % Neut # (Auto) 8.35 H (1.56-6.13) K/mm3 Lymph # (Auto) 1.15 L (1.18-3.74) K/mm3 [place] # (Auto) 0.97 H (0.24-0.36) K/mm3 Eos # (Auto) 0.00 L (0.04-0.36) K/mm3 Baso # (Auto) 0.10 H (0.01-0.08) K/mm3 Manual Slide Review Normal smear Puncture Site Lt radial ABG pH 7.35 (7.35-7.45) ABG pCO2 57.1 H (35.0-45.0) mmHg ABG pO2 52.0 L (80.0-100.0) mmHg ABG HCO3 30.6 H (22.0-26.0) meq/L ABG O2 Saturation 87.7 L (96.0-97.0) % ABG Base Excess 4.1 H (-2-2.0) Ritesh Test Positive O2 Delivery Device Bipap Oxygen Flow Rate 4.5 FiO2 0.00 L (21.00-100.00) % PEEP 6.0 cmH20 Pressure Support 12.0 cmH2O Sodium (136-145) mEq/L Potassium (3.5-5.1) mEq/L Chloride (98-107) mEq/L Carbon Dioxide (21-32) mEq/L Anion Gap (5-15) BUN (7-18) mg/dL Creatinine (0.55-1.02) mg/dL Est Cr Clr Drug Dosing mL/min Estimated GFR (MDRD) (>60) mL/min BUN/Creatinine Ratio (14-18) Glucose (80-115) mg/dL Calcium (8.5-10.1) mg/dL Magnesium (1.8-2.4) mg/dl C-Reactive Protein (<1.0) mg/dL C.difficile [id number] Presumptive negative C. difficile Tox (PCR) Negative 11/26/17 Range/Units 06:00 WBC (3.98-10.04) K/mm3 RBC (3.98-5.22) M/mm3 Hgb (11.2-15.7) gm/L Hct (34.1-44.9) % MCV (79.4-94.8) fl MCH (25.6-32.2) pg MCHC (32.2-35.5) g/dl RDW Std Deviation (36.4-46.3) fL Plt Count (182-369) K/mm3 MPV (9.4-12.3) fl Neut % (Auto) (34.0-71.1) % Lymph % (Auto) (19.3-51.7) % [place] % (Auto) (4.7-12.5) % Eos % (Auto) (0.7-5.8) Baso % (Auto) (0.1-1.2) % Neut # (Auto) (1.56-6.13) K/mm3 Lymph # (Auto) (1.18-3.74) K/mm3 [place] # (Auto) (0.24-0.36) K/mm3 Eos # (Auto) (0.04-0.36) K/mm3 Baso # (Auto) (0.01-0.08) K/mm3 Manual Slide Review Puncture Site ABG pH (7.35-7.45) ABG pCO2 (35.0-45.0) mmHg ABG pO2 (80.0-100.0) mmHg ABG HCO3 (22.0-26.0) meq/L ABG O2 Saturation (96.0-97.0) % ABG Base Excess (-2-2.0) Ritesh Test O2 Delivery Device Oxygen Flow Rate FiO2 (21.00-100.00) % PEEP cmH20 Pressure Support cmH2O Sodium 146 H (136-145) mEq/L Potassium 4.3 (3.5-5.1) mEq/L Chloride 107 (98-107) mEq/L Carbon Dioxide 33 H (21-32) mEq/L Anion Gap 10.3 (5-15) BUN 35 H (7-18) mg/dL Creatinine 0.8 (0.55-1.02) mg/dL Est Cr Clr Drug Dosing 60.31 mL/min Estimated GFR (MDRD) > 60 (>60) mL/min BUN/Creatinine Ratio 43.8 H (14-18) Glucose 133 H (80-115) mg/dL Calcium 9.5 (8.5-10.1) mg/dL Magnesium 2.2 (1.8-2.4) mg/dl C-Reactive Protein 3.4 H* (<1.0) mg/dL C.difficile [id number] C. difficile Tox (PCR) Med Orders - Current: Current Medications Acetaminophen (Tylenol) 650 mg RECTAL Q4H PRN PRN Reason: Pain (mild 1-3) Albuterol/Ipratropium (Duoneb 3.0-0.5 Mg/3 Ml) 3 ml NEB Q6HRRT [facility] Last Admin: 11/26/17 02:59 Dose: 3 ml Amlodipine Besylate (Norvasc) 10 mg PO DAILY [facility] Last Admin: 11/25/17 10:23 Dose: 10 mg Budesonide (Pulmicort) 0.5 mg NEB BID@0900,2100 [facility] Last Admin: 11/25/17 21:24 Dose: 0.5 mg Buspirone HCl (Buspar) 2.5 mg PO BID [facility] Last Admin: 11/25/17 20:29 Dose: 2.5 mg Enoxaparin Sodium (Lovenox) 40 mg SUBCUT DAILY [facility] Last Admin: 11/25/17 10:25 Dose: 40 mg Hydralazine HCl (Apresoline) 10 mg IVPUSH Q6H PRN PRN Reason: Hypertension Levofloxacin/Dextrose 750 mg/ (Premix) 150 mls @ 100 mls/hr IV Q48H [facility] Last Admin: 11/24/17 10:25 Dose: 100 mls/hr Ibuprofen (Motrin) 600 mg PO Q6H PRN PRN Reason: Pain/Fever Last Admin: 11/24/17 22:18 Dose: 600 mg Losartan Potassium (Cozaar) 100 mg PO DAILY [facility] Last Admin: 11/25/17 10:25 Dose: 100 mg Magnesium Oxide (Magnesium Oxide) 200 mg PO DAILY [facility] Last Admin: 11/25/17 10:24 Dose: 200 mg Magnesium Sulfate (Pharmacy To Dose - Magnesium Replacement) 0 dose .XX ASDIRECTED PRN PRN Reason: RX TO WATCH MAG LEVELS Methylprednisolone Sodium Succinate (Solu-Medrol) 40 mg IVPUSH Q12H [facility] Last Admin: 11/25/17 20:29 Dose: 40 mg Metoprolol Tartrate (Lopressor) 5 mg IVPUSH Q4H PRN PRN Reason: Tachycardia Miscellaneous Information (Remove Patch) 0 ea TRDERM DAILY [facility] Last Admin: 11/25/17 10:24 Dose: Not Given Modafinil (Provigil) 50 mg PO DAILY [facility] Last Admin: 11/25/17 10:22 Dose: 50 mg Pantoprazole Sodium (Protonix) 40 mg PO BIDAC [facility] Last Admin: 11/26/17 05:12 Dose: 40 mg Potassium Chloride (Pharmacy To Dose - Potassium Replacement) 0 dose .XX ASDIRECTED PRN PRN Reason: RX TO WATCH K LEVELS Simethicone (Simethicone) 80 mg PO Q4H PRN PRN Reason: Abdominal Pain Last Admin: 11/25/17 16:25 Dose: 80 mg Simvastatin (Zocor) 20 mg PO DAILY [facility] Last Admin: 11/25/17 10:24 Dose: 20 mg Sodium Chloride (Saline Flush) 10 ml FLUSH ASDIRECTED PRN PRN Reason: Keep Vein Open Last Admin: 11/24/17 00:44 Dose: 10 ml Vit A/Vit C/Vit E/Selen/Cu/Zn/Lutei (Icaps Mv) 1 tab PO DAILY [facility] Last Admin: 11/25/17 10:22 Dose: 1 tab Discontinued Medications Albuterol (Proventil Neb Soln) 2.5 mg NEB ONETIME ONE Stop: 11/22/17 11:09 Last Admin: 11/22/17 11:24 Dose: 2.5 mg Albuterol/Ipratropium (Duoneb 3.0-0.5 Mg/3 Ml) 3 ml NEB ONETIME ONE Stop: 11/22/17 09:17 Last Admin: 11/22/17 09:22 Dose: 3 ml Albuterol/Ipratropium (Duoneb 3.0-0.5 Mg/3 Ml) Confirm Administered Dose 3 ml .ROUTE .STK-MED ONE Stop: 11/22/17 09:23 Last Admin: 11/22/17 09:22 Dose: Not Given Budesonide (Pulmicort) 0.5 mg NEB BIDRT [facility] Bumetanide (Bumex) 0.5 mg IVPUSH ONETIME ONE Stop: 11/24/17 07:01 Last Admin: 11/24/17 06:30 Dose: 0.5 mg Guaifenesin (Mucinex) 1,200 mg PO BID [facility] Last Admin: 11/24/17 10:42 Dose: Not Given Levofloxacin/Dextrose 750 mg/ (Premix) 150 mls @ 100 mls/hr IV ONETIME ONE Stop: 11/22/17 11:05 Last Admin: 11/22/17 09:55 Dose: 100 mls/hr Sodium Chloride (Normal Saline) Confirm Administered Dose 1,000 mls @ as directed .ROUTE .STK-MED ONE Stop: 11/22/17 11:20 Last Admin: 11/22/17 11:33 Dose: Not Given Sodium Chloride (Normal Saline) 500 mls @ 999 mls/hr IV .BOLUS ONE Stop: 11/22/17 12:03 Last Admin: 11/22/17 11:35 Dose: 999 mls/hr Sodium Chloride (Normal Saline) 1,000 mls @ 100 mls/hr IV ASDIRECTED [facility] Stop: 11/24/17 05:00 Last Admin: 11/23/17 12:47 Dose: 100 mls/hr Azithromycin 500 mg/ Sodium (Chloride) 250 mls @ 250 mls/hr IV Q24H [facility] Last Admin: 11/25/17 14:41 Dose: 250 mls/hr Sodium Chloride (Normal Saline) 1,000 mls @ 100 mls/hr IV ASDIRECTED [facility] Stop: 11/24/17 21:44 Last Admin: 11/24/17 13:19 Dose: 100 mls/hr Methylprednisolone Sodium Succinate (Solu-Medrol) 125 mg IM ONETIME ONE Stop: 11/22/17 09:17 Last Admin: 11/23/17 10:14 Dose: Not Given Methylprednisolone Sodium Succinate (Solu-Medrol) 125 mg IVPUSH ONETIME ONE Stop: 11/22/17 10:03 Last Admin: 11/22/17 10:03 Dose: 125 mg Methylprednisolone Sodium Succinate (Solu-Medrol) 125 mg IVPUSH Q8H [facility] Last Admin: 11/23/17 10:49 Dose: Not Given Methylprednisolone Sodium Succinate (Solu-Medrol) 80 mg IVPUSH Q12H [facility] Last Admin: 11/24/17 10:06 Dose: 80 mg Modafinil (Provigil) 50 mg PO DAILY [facility] Last Admin: 11/24/17 18:47 Dose: 50 mg Nicotine (Habitrol) 21 mg TRDERM DAILY [facility] Last Admin: 11/23/17 08:52 Dose: 21 mg Nicotine (Habitrol) 14 mg TRDERM ONETIME ONE Stop: 11/23/17 13:36 Last Admin: 11/24/17 00:50 Dose: Not Given Potassium Cl 75mg = (1meq (Otc Product)) 75 mg PO DAILY [facility] Pneumococcal Polyvalent Vaccine (Pneumovax 23) 0.5 ml IM .ONCE ONE Stop: 11/22/17 18:01 Zolpidem Tartrate (Ambien) 10 mg PO BEDTIME [facility] Last Admin: 11/22/17 21:00 Dose: 10 mg Zolpidem Tartrate (Ambien) 5 mg PO BEDTIME [facility] Last Admin: 11/23/17 21:30 Dose: 5 mg - Exam Quality Assessment: Supplemental Oxygen General: Alert, Oriented, Cooperative, No Acute Distress HEENT: Pupils Equal, Pupils Reactive, EOMI, Mucous Membr. Moist/[place] Neck: Supple, Trachea Midline, No JVD Lungs: Normal Respiratory Effort, Decreased Breath Sounds, Rhonchi Cardiovascular: Regular Rate, Regular Rhythm GI/Abdominal Exam: Normal Bowel Sounds, Soft, Non-Tender, No Organomegaly, No Distention, No Abnormal Bruit, No Mass (Female) Exam: Deferred Back Exam: Normal Inspection, Decreased Range of Motion Extremities: Normal Inspection, Normal Range of Motion, Non-Tender, No Pedal Edema, Normal Capillary Refill Peripheral Pulses: 2+: Dorsalis Pedis (L), Dorsalis Pedis (R) Skin: Warm, Dry, Intact Neurological: No New Focal Deficit Psy/Mental Status: Alert, Normal Affect, Normal Mood - Problem List Review Problem List Initiated/Reviewed/Updated: Yes - My Orders Last 24 Hours: My Active Orders 11/25/17 09:00 Modafinil [Provigil] 50 mg PO DAILY 11/25/17 15:50 Simethicone 80 mg PO Q4H PRN 11/25/17 16:00 Pantoprazole [ProTONIX] 40 mg PO BIDAC - Plan Plan:: I/P: Acute: Respiratory Failure, Improved - 2/2 COPD and PNA - Carries a hx/o long hx/o heavy smoking - PRN BIPAP with supplemental O2 - Non-compliant initially with BIPAP; encourage to use it to avoid possible intubation Pneumonia, Improving -Fever, chills, dyspnea, and cough for past 3-4 days -EMS found cyanotic with saturations in the 50's and AMS -Risk factor: 40+ year smoking history, no diagnosed respiratory diseases -CXR: Increased density bilaterally but more prominent on right side -Repeat CXR shows improvement right sided pneumonia and new left sided atelectasis; repeat CXR in AM -Continue Levaquin 750 mg IV daily; D/c Azithromycin -WBC 14.17-->11.45-->15.83--> 13.26--> 11.93, CRP 38.5-->29.3-->12.9--> 6.4-- > 3.4 -Lactic acid 1.3 -Continue RT/IS/Acapella/Pulmicort/Steroids/Bronchodilators -Blood cultures negative after 3 days -Sputum culture once mentation improves Probable COPD Exacerbation - Caries a hx/o heavy smoking - Continue Steroids/Bronchodilators/Muscle Relaxant and Supplemental O2 - Unable to perform PFT due to PNA; consider outpatient - Consider PFT before d/c Tobacco use disorder -Reportedly smokes 1/2 pack daily for 40+ years -Hx/o ETOH abuse -Discussed importance of quitting, offered nicotine patch at discharge -21mg patch gave pt headache, will decrease to 14mg, patient has been refusing -Discussed resources for quitting including PCP, [place] quitline -Patient is hesitant for now, will continue to offer encouragement and update PCP Melancholy/Depressed Mood - She worries about her dad and her grandchildren - consult Resolved: AMS -Likely 2/2 above with acidosis -Cyanotic and AMS with EMS -Family reports normal mental status at baseline -ABG shows respiratory acidosis, repeat ordered - improving -Pulling at EKG wires, attempting to pull off BIPAP -Alert; knows first name but not last, knows hospital but not town - working to establish power of disability attorney with son/brother -BIPAP, monitor need for intubation -UA - unimpressive -NPO for now-->Increase to soft diet - IV fluids Chronic: Anxiety Depression HLD HTN - PRN IV meds Insomnia Hypokalemia - IV repletion Hypomagnesemia - IV repletion Tobacco use disorder Plan: She she is clinically and hemodynamically better this morning Continue current treatment Routine AM Labs Continue PT/OT eval D/c IVF Fall precautions DVT prophylaxis: Lovenox Encourage to ambulate as tolerated Other orders as indicated above Recommend PFTs after discharge and resolution of symptoms for baseline SW/CM for d/c planning Possible d/c in 1-2 days Code status: Full code; PCP AWILDA Rosado here at [facility]. Prognosis is good-guarded at this point. Updated son and brother about her clinical progress.
[2017-11-26] MEDS: Modafinil 200 MG Tab PO SCH (09:24)
[2017-11-26] MEDS: Multivitamins with Minerals/Folic Acid/Lutein/Zeaxanth Tab PO SCH (09:26)
[2017-11-26] MEDS: Simvastatin 20 MG Tab PO SCH (09:26)
[2017-11-26] MEDS: Magnesium Oxide 400 MG Tab PO SCH (09:27)
[2017-11-26] MEDS: Simethicone 80 MG Tab.Chew PO PRN ×2 (09:27→16:48)
[2017-11-26] MEDS: amLODIPine 10 MG Tab PO SCH (09:29)
[2017-11-26] MEDS: busPIRone 5 MG Tab PO SCH ×2 (09:29→20:34)
[2017-11-26] MEDS: Losartan 100 MG Tab PO SCH (09:32)
[2017-11-26] MEDS: Enoxaparin 40 MG/0.4 ML Syringe SUBCUT SCH (09:33)
[2017-11-26] MEDS: methylPREDNISolone Sodium Succinate 40 MG/1 ML SDV IVPUSH SCH ×2 (09:34→20:35)
[2017-11-26] MEDS: Budesonide 0.5 MG/2 ML Neb Susp NEB SCH ×2 (09:41→20:14)
[2017-11-26] MEDS: Levofloxacin/Dextrose 5%-Water 750 MG in Premix Bag 1 BAG IV SCH (10:25)
[2017-11-26] MEDS ORDERED: Sodium Chloride 0.9% 10 ML Syringe FLUSH PRN (17:21)
[2017-11-26] MEDS: Ibuprofen 600 MG Tab PO PRN (23:34)
[2017-11-27] MEDS: Albuterol/Ipratropium 3.0-0.5 MG/3 ML Neb Soln NEB SCH ×2 (02:22→09:03)
[2017-11-27] MEDS: Pantoprazole 40 MG Tab.CR PO SCH (05:23)
--- NOTE | 2017-11-27 07:11 | PCM.DCSUM1 ---
Discharge Summary - Hospital Course HPI Initial Comments: Jessica Smith is a 62 yo female who presents to our ED today (11/22/17) via EMS with cough, fever, chills, dyspnea, SOB, and near respiratory failure. It is reported her called her brother this morning because she was having SOB , generalized weakness, and she was unable to get out of bed. When her brother arrived he noted she was cyanotic and called the ambulance. On EMS arrival she looked dusky and O2 sats were in the 50% range. She was given an albuterol neb and started on 15 L via nonrebreather, which raised her sats up to 98%. Arrival ED sats were 96-98% but she was very tachypneic, confused, and not able to give a history. Patient history is primarily provided by her brother. He reports that she has not been well for 3-4 days with cough congestion and some difficulty breathing. He did seem to be improving yesterday was able to get up and walk around but was much worse this morning. She does have a significant history of smoking. She does not have home oxygen. No known diabetes. In the ED temp was 101.7. Pulse 128. Respirations 24. Blood pressure 115/83. Pulse ox 100%. Labs are obtained: 30 mL elevated at 14.17. Hemoglobin good at 14.2. Hematocrit 43.4. She is normocytic. RDW is elevated at 55.5. Pulse are high at 316. Neutrophils are noted at 53%. She does have bandemia with a 30 % band neutrophil count. ABG was obtained and shows that she is acidotic with pH of 7.30. PCO2 is high at 57.5. P O2 is low at 67. Bicarbonate is high at 27.4. Oxygen saturation low at 92.8%. Base excess is 0.2. A-a gradient is 149. This was on a Venturi mask. CRP is 38.5. Sodium was good at 140. Potassium 4.5. Chloride 99. Carbon dioxide 27. Anion gap is high at 18.5. BUN is high at 39. Creatinine is high at 1.3. EGFR is 42. Glucose is high at 144. Calcium is 9.2. Total bilirubin 0.3. Liver enzymes looked good with AST of 17, ALT at 22, alkaline phosphatase at 69. ProBNP is high at 1432. Protein 7.4. Albumin is low at 2.6. She was given albuterol and DuoNeb's. 750 mg Levaquin is initiated. 125 mg IV site middle also started. Portal chest x-ray is obtained and interpreted by Dr. Joseph as "1. Diffuse increased density within both sides of the chest, worse on the right side as described." This is compatible with bronchitis or possible early pneumonia. Influenza screen was negative. BiPAP was initiated. Telemetry was obtained and shows a sinus tachycardia with possible biatrial enlargement. There is Q waves noted in V1 and V2 representing a possible old anteroseptal infarct. The acute is appreciated. I reviewed her prior clinic notes from her PCP. She carries a history of hypomagnesemia, hypokalemia, anxiety, depression, HDL, arthritis, insomnia, HTN. She is a current daily smoker and reportedly smokes a half pack a day. She does have a significant history of smoking for 40+ years. She subsequently admitted to the ICU. Full code. PCP is AWILDA Arreaga at [facility]. - Discharge Data Discharge Date: 11/27/17 (Admit date: 11/22/17) Discharge Disposition: Home, Self-Care 01 Condition: Good - Discharge Diagnosis/Problem(s) (1) Pneumonia SNOMED Code(s): 212334036 ICD Code: J18.9 - PNEUMONIA, UNSPECIFIED ORGANISM Status: Acute Priority : High Current Visit: Yes Qualifiers: Pneumonia type: due to unspecified organism Laterality: right Lung location: lower lobe of lung Qualified Code(s): J18.1 - Lobar pneumonia, unspecified organism (2) Acidosis SNOMED Code(s): 69978198 ICD Code: E87.2 - ACIDOSIS Status: Acute Priority: High Current Visit: Yes (3) Altered mental status SNOMED Code(s): 220282521 ICD Code: R41.82 - ALTERED MENTAL STATUS, UNSPECIFIED Status: Resolved Priority: High Current Visit: Yes Qualifiers: Altered mental status type: disorientation Qualified Code(s): R41.0 - Disorientation, unspecified (4) Hypoxia SNOMED Code(s): 513159729 ICD Code: R09.02 - HYPOXEMIA Status: Acute Priority: High Current Visit : Yes (5) Tobacco use disorder SNOMED Code(s): 771222410 ICD Code: F17.200 - NICOTINE DEPENDENCE, UNSPECIFIED, UNCOMPLICATED Status : Chronic Priority: Medium Current Visit: Yes (6) Anxiety SNOMED Code(s): 68550730 ICD Code: F41.9 - ANXIETY DISORDER, UNSPECIFIED Status: Chronic Priority : Low Current Visit: Yes (7) HLD (hyperlipidemia) SNOMED Code(s): 49786851 ICD Code: E78.5 - HYPERLIPIDEMIA, UNSPECIFIED Status: Chronic Priority: Low Current Visit: No Qualifiers: Hyperlipidemia type: unspecified Qualified Code(s): E78.5 - Hyperlipidemia , unspecified (8) HTN (hypertension) SNOMED Code(s): 87891866 ICD Code: I10 - ESSENTIAL (PRIMARY) HYPERTENSION Status: Acute Current Visit: Yes (9) Insomnia SNOMED Code(s): 683843245 ICD Code: G47.00 - INSOMNIA, UNSPECIFIED Status: Acute Current Visit: Yes (10) Arthritis SNOMED Code(s): 9956004 ICD Code: M19.90 - UNSPECIFIED OSTEOARTHRITIS, UNSPECIFIED SITE Status: Chronic Priority: Low Current Visit: No - Patient Summary/Data Consults: Consultations 11/22/17 12:40 Consult to Case Management [CONS] Routine Consult to Private Duty Rn [CONS] Routine Respiratory Care Assess and Treatment [CONS] Routine 11/23/17 13:26 Consult to Occupational Therapy [OT Evaluation and Treatment] [CONS] Routine PT Evaluation and Treatment [CONS] Routine Hospital Course: I/P: Acute: Respiratory Failure, Improved - 2/2 COPD and PNA - Carries a hx/o long hx/o heavy smoking - PRN BIPAP with supplemental O2 - Non-compliant initially with BIPAP; encourage to use it to avoid possible intubation Pneumonia, Improving -Fever, chills, dyspnea, and cough for past 3-4 days -EMS found cyanotic with saturations in the 50's and AMS -Risk factor: 40+ year smoking history, no diagnosed respiratory diseases -CXR: Increased density bilaterally but more prominent on right side -Repeat CXR shows improvement right sided pneumonia and new left sided atelectasis; repeat CXR in AM -Continue Levaquin 750 mg IV daily; D/c Azithromycin -WBC 14.17-->11.45-->15.83--> 13.26--> 11.93, CRP 38.5-->29.3-->12.9--> 6.4-- > 3.4 -Lactic acid 1.3 -Continue RT/IS/Acapella/Pulmicort/Steroids/Bronchodilators -Blood cultures negative after 3 days -Sputum culture once mentation improves Probable COPD Exacerbation - Caries a hx/o heavy smoking - Continue Steroids/Bronchodilators/Muscle Relaxant and Supplemental O2 - Unable to perform PFT due to PNA; consider outpatient - Consider PFT before d/c Tobacco use disorder -Reportedly smokes 1/2 pack daily for 40+ years -Hx/o ETOH abuse -Discussed importance of quitting, offered nicotine patch at discharge -21mg patch gave pt headache, will decrease to 14mg, patient has been refusing -Discussed resources for quitting including PCP, [place] quitline -Patient is hesitant for now, will continue to offer encouragement and update PCP Melancholy/Depressed Mood - She worries about her dad and her grandchildren - SW consult Resolved: AMS -Likely 2/2 above with acidosis -Cyanotic and AMS with EMS -Family reports normal mental status at baseline -ABG shows respiratory acidosis, repeat ordered - improving -Pulling at EKG wires, attempting to pull off BIPAP -Alert; knows first name but not last, knows hospital but not town - working to establish power of litigation attorney with son/brother -BIPAP, monitor need for intubation -UA - unimpressive -NPO for now-->Increase to soft diet - IV fluids Chronic: Anxiety Depression HLD HTN - PRN IV meds Insomnia Hypokalemia - IV repletion Hypomagnesemia - IV repletion Tobacco use disorder Plan: She she is clinically and hemodynamically better this morning Continue current treatment Routine AM Labs Continue PT/OT eval D/c IVF Fall precautions DVT prophylaxis: Lovenox Encourage to ambulate as tolerated Other orders as indicated above Recommend PFTs after discharge and resolution of symptoms for baseline SW/CM for d/c planning Overall Jessica improved during her stay here. We suspect some underlying COPD, given her smoking history and functional status. Recommend a PFT once her pneumonia completely clears and she is back to baseline. Her PCP can schedule this during her follow-up visit. She was initially placed on BIPAP when she came to the ICU as her mentation was altered. She was weaned to O2 via NC but ultimately returned to BIPAP as her mentation again became somewhat altered. She was given provigil to increase her alertness and stimulate better respirations. She improved rapidly over the past few days. PT/OT signed off on the patient and recommended home independent. The patient reportedly takes care of her father and a dog. Discussed assistance and patient refused. RT qualified pt. for home oxygen today with 2L constant and 5L with activity. She will also be discharged on a home nebulizer and pulmicort. Her PCP should follow-up with continued need for this. She is a smoker. Discussed smoking cessation. She reportedly smokes 1/2-1 pack per day although her brother reports she will start a cigarette and then leave it and only take a few puffs. She was given a 21mg nicotine patch here but ultimately refused future patches as they caused a headache. We discussed patches of lesser dosages to which she refused. She ultimately agreed to a lozenge. She was instructed to follow-up with this as her primary care provider will need to decrease the frequency/dosage as she progresses. She was also given the phone number for the [place] quitline. We discussed people she can call if she feels like a cigarette as well as other activities to avoid smoking. She voiced understanding. She will be discharged on PO levaquin as well. She should follow-up with her PCP in 7-10 days. - Patient Instructions Diet: Heart Healthy Diet Activity: As Tolerated Driving: Do Not Drive (today ) Showering/Bathing: May Shower Notify Provider of: Fever, Increased Pain, Nausea and/or Vomiting (increased shortness of breath, chest pain.) - Discharge Plan Prescriptions/Med Rec: Nicotine Polacrilex [Nicotine Lozenge] 2 mg BC Q2HR #90 [email or web address] Albuterol/Ipratropium [DuoNeb 3.0-0.5 MG/3 ML] 3 ml NEB QID #50 neb Budesonide [Pulmicort] 0.5 mg NEB BID@0900,2100 #30 neb Levofloxacin [Levaquin] 750 mg PO DAILY 6 Days #6 tab Home Medications: Home Meds Fish Oil/[place]-3 Fatty Acids [Fish Oil] 1 tab PO DAILY 11/22/17 [History] MV,Ca,Min/Iron Fum/FA/Lyco/Lut [Complete Multi] 1 tab PO DAILY 11/22/17 [History ] Magnesium 200 mg PO DAILY 11/22/17 [History] Potassium 75 mg PO DAILY 11/22/17 [History] Turmeric/Turmeric Root Extract [Turmeric 450-50 mg Capsule] 900 mg PO DAILY [History] Zolpidem [Ambien CR] 12.5 mg PO QPM 11/22/17 [History] amLODIPine Bes/Olmesartan Med [Chrissie 10-40 MG] 1 tab PO DAILY 11/22/17 [History] atorvaSTATin [Lipitor] 20 mg PO DAILY 11/22/17 [History] busPIRone HCl [Buspirone HCl] 2.5 tab PO BID 11/22/17 [History] Albuterol/Ipratropium [DuoNeb 3.0-0.5 MG/3 ML] 3 ml NEB QID #50 neb 11/27/17 [Rx ] Budesonide [Pulmicort] 0.5 mg NEB BID@0900,2100 #30 neb 11/27/17 [Rx] Levofloxacin [Levaquin] 750 mg PO DAILY 6 Days #6 tab 11/27/17 [Rx] Nicotine Polacrilex [Nicotine Lozenge] 2 mg BC Q2HR #90 [email or web address] 11/27/17 [Rx] Patient Handouts: How to Use a Nebulizer, Adult, Home Oxygen Use, Adult, Steps to Quit Smoking, Community-Acquired Pneumonia, Adult, [id number] Forms: ED Department Discharge Referrals: Lisa Lares, [employer] [Primary Care Provider] - - Discharge Summary/Plan Comment DC Time >30 min.: Yes (45 mins ) - General Info Date of Service: 11/27/17 Admission Dx/Problem (Free Text: Admission Diagnosis/Problem Admission Diagnosis/Problem Pneumonia Subjective Update: No significant overnight or acute issues. She looks really good clinically this morning. She also feels good and breathing better. She has been walking. She is very alert. Repeat CXR is greatly improved. She will be discharged today. Functional Status: Reports: Pain Controlled, Tolerating Diet, Ambulating, Urinating. Denies: New Symptoms - Review of Systems General: Reports: No Symptoms. Denies: Fever, Weakness, Fatigue, Malaise HEENT: Reports: No Symptoms. Denies: Ear Pain, Eye Pain Pulmonary: Reports: No Symptoms. Denies: Shortness of Breath, Cough, Sputum, Wheezing Cardiovascular: Reports: No Symptoms. Denies: Chest Pain, Palpitations, Edema, Lightheadedness Gastrointestinal: Reports: No Symptoms. Denies: Abdominal Pain, Constipation, Diarrhea, Nausea, Vomiting Genitourinary: Reports: No Symptoms Musculoskeletal: Reports: No Symptoms Skin: Reports: No Symptoms Neurological: Reports: No Symptoms Psychiatric: Reports: No Symptoms - Patient Data Vitals - Most Recent: Last Vital Signs Temp 97.8 F 11/27/17 04:00 Pulse 95 11/27/17 04:00 Resp 24 H 11/27/17 04:00 BP 123/74 11/27/17 04:00 Pulse Ox 92 L 11/27/17 04:00 Weight - Most Recent: 154 lb 1.6 oz I&O - Last 24 hours: Intake & Output 11/26/17 11/27/17 11/27/17 22:59 06:59 14:59 Intake Total 150 Output Total 600 700 Balance -450 -700 Lab Results - Last 24 hrs: Laboratory Results - last 24 hr 11/26/17 Range/Units 06:00 Manual Slide Review Normal smear Med Orders - Current: Current Medications Acetaminophen (Tylenol) 650 mg RECTAL Q4H PRN PRN Reason: Pain (mild 1-3) Albuterol/Ipratropium (Duoneb 3.0-0.5 Mg/3 Ml) 3 ml NEB Q6HRRT [facility] Last Admin: 11/27/17 02:22 Dose: 3 ml Amlodipine Besylate (Norvasc) 10 mg PO DAILY [facility] Last Admin: 11/26/17 09:29 Dose: 10 mg Budesonide (Pulmicort) 0.5 mg NEB BID@0900,2100 [facility] Last Admin: 11/26/17 20:14 Dose: 0.5 mg Buspirone HCl (Buspar) 2.5 mg PO BID [facility] Last Admin: 11/26/17 20:34 Dose: 2.5 mg Enoxaparin Sodium (Lovenox) 40 mg SUBCUT DAILY [facility] Last Admin: 11/26/17 09:33 Dose: 40 mg Hydralazine HCl (Apresoline) 10 mg IVPUSH Q6H PRN PRN Reason: Hypertension Levofloxacin/Dextrose 750 mg/ (Premix) 150 mls @ 100 mls/hr IV Q24H [facility] Last Admin: 11/26/17 10:25 Dose: 100 mls/hr Ibuprofen (Motrin) 600 mg PO Q6H PRN PRN Reason: Pain/Fever Last Admin: 11/26/17 23:34 Dose: 600 mg Losartan Potassium (Cozaar) 100 mg PO DAILY [facility] Last Admin: 11/26/17 09:32 Dose: 100 mg Magnesium Oxide (Magnesium Oxide) 200 mg PO DAILY [facility] Last Admin: 11/26/17 09:27 Dose: 200 mg Magnesium Sulfate (Pharmacy To Dose - Magnesium Replacement) 0 dose .XX ASDIRECTED PRN PRN Reason: RX TO WATCH MAG LEVELS Methylprednisolone Sodium Succinate (Solu-Medrol) 40 mg IVPUSH Q12H [facility] Last Admin: 11/26/17 20:35 Dose: 40 mg Metoprolol Tartrate (Lopressor) 5 mg IVPUSH Q4H PRN PRN Reason: Tachycardia Miscellaneous Information (Remove Patch) 0 ea TRDERM DAILY [facility] Last Admin: 11/26/17 09:35 Dose: Not Given Modafinil (Provigil) 50 mg PO DAILY [facility] Last Admin: 11/26/17 09:24 Dose: 50 mg Pantoprazole Sodium (Protonix) 40 mg PO BIDAC [facility] Last Admin: 11/27/17 05:23 Dose: 40 mg Potassium Chloride (Pharmacy To Dose - Potassium Replacement) 0 dose .XX ASDIRECTED PRN PRN Reason: RX TO WATCH K LEVELS Simethicone (Simethicone) 80 mg PO Q4H PRN PRN Reason: Abdominal Pain Last Admin: 11/26/17 16:48 Dose: 80 mg Simvastatin (Zocor) 20 mg PO DAILY [facility] Last Admin: 11/26/17 09:26 Dose: 20 mg Sodium Chloride (Saline Flush) 10 ml FLUSH ASDIRECTED PRN PRN Reason: Keep Vein Open Last Admin: 11/24/17 00:44 Dose: 10 ml Sodium Chloride (Saline Flush) 10 ml FLUSH ASDIRECTED PRN PRN Reason: Keep Vein Open Vit A/Vit C/Vit E/Selen/Cu/Zn/Lutei (Icaps Mv) 1 tab PO DAILY [facility] Last Admin: 11/26/17 09:26 Dose: 1 tab Discontinued Medications Albuterol (Proventil Neb Soln) 2.5 mg NEB ONETIME ONE Stop: 11/22/17 11:09 Last Admin: 11/22/17 11:24 Dose: 2.5 mg Albuterol/Ipratropium (Duoneb 3.0-0.5 Mg/3 Ml) 3 ml NEB ONETIME ONE Stop: 11/22/17 09:17 Last Admin: 11/22/17 09:22 Dose: 3 ml Albuterol/Ipratropium (Duoneb 3.0-0.5 Mg/3 Ml) Confirm Administered Dose 3 ml .ROUTE .STK-MED ONE Stop: 11/22/17 09:23 Last Admin: 11/22/17 09:22 Dose: Not Given Budesonide (Pulmicort) 0.5 mg NEB BIDRT [facility] Bumetanide (Bumex) 0.5 mg IVPUSH ONETIME ONE Stop: 11/24/17 07:01 Last Admin: 11/24/17 06:30 Dose: 0.5 mg Guaifenesin (Mucinex) 1,200 mg PO BID [facility] Last Admin: 11/24/17 10:42 Dose: Not Given Levofloxacin/Dextrose 750 mg/ (Premix) 150 mls @ 100 mls/hr IV ONETIME ONE Stop: 11/22/17 11:05 Last Admin: 11/22/17 09:55 Dose: 100 mls/hr Sodium Chloride (Normal Saline) Confirm Administered Dose 1,000 mls @ as directed .ROUTE .STK-MED ONE Stop: 11/22/17 11:20 Last Admin: 11/22/17 11:33 Dose: Not Given Sodium Chloride (Normal Saline) 500 mls @ 999 mls/hr IV .BOLUS ONE Stop: 11/22/17 12:03 Last Admin: 11/22/17 11:35 Dose: 999 mls/hr Levofloxacin/Dextrose 750 mg/ (Premix) 150 mls @ 100 mls/hr IV Q48H [facility] Last Admin: 11/24/17 10:25 Dose: 100 mls/hr Sodium Chloride (Normal Saline) 1,000 mls @ 100 mls/hr IV ASDIRECTED [facility] Stop: 11/24/17 05:00 Last Admin: 11/23/17 12:47 Dose: 100 mls/hr Azithromycin 500 mg/ Sodium (Chloride) 250 mls @ 250 mls/hr IV Q24H [facility] Last Admin: 11/25/17 14:41 Dose: 250 mls/hr Sodium Chloride (Normal Saline) 1,000 mls @ 100 mls/hr IV ASDIRECTED [facility] Stop: 11/24/17 21:44 Last Admin: 11/24/17 13:19 Dose: 100 mls/hr Methylprednisolone Sodium Succinate (Solu-Medrol) 125 mg IM ONETIME ONE Stop: 11/22/17 09:17 Last Admin: 11/23/17 10:14 Dose: Not Given Methylprednisolone Sodium Succinate (Solu-Medrol) 125 mg IVPUSH ONETIME ONE Stop: 11/22/17 10:03 Last Admin: 11/22/17 10:03 Dose: 125 mg Methylprednisolone Sodium Succinate (Solu-Medrol) 125 mg IVPUSH Q8H [facility] Last Admin: 11/23/17 10:49 Dose: Not Given Methylprednisolone Sodium Succinate (Solu-Medrol) 80 mg IVPUSH Q12H [facility] Last Admin: 11/24/17 10:06 Dose: 80 mg Modafinil (Provigil) 50 mg PO DAILY [facility] Last Admin: 11/24/17 18:47 Dose: 50 mg Nicotine (Habitrol) 21 mg TRDERM DAILY [facility] Last Admin: 11/23/17 08:52 Dose: 21 mg Nicotine (Habitrol) 14 mg TRDERM ONETIME ONE Stop: 11/23/17 13:36 Last Admin: 11/24/17 00:50 Dose: Not Given Potassium Cl 75mg = (1meq (Otc Product)) 75 mg PO DAILY [facility] Pneumococcal Polyvalent Vaccine (Pneumovax 23) 0.5 ml IM .ONCE ONE Stop: 11/22/17 18:01 Zolpidem Tartrate (Ambien) 10 mg PO BEDTIME [facility] Last Admin: 11/22/17 21:00 Dose: 10 mg Zolpidem Tartrate (Ambien) 5 mg PO BEDTIME [facility] Last Admin: 11/23/17 21:30 Dose: 5 mg - Exam Quality Assessment: Reports: Supplemental Oxygen, DVT Prophylaxis General: Reports: Alert, Oriented, Cooperative, No Acute Distress HEENT: Reports: Pupils Equal, Pupils Reactive, EOMI, Mucous Membr. Moist/[place] Neck: Reports: Supple, Trachea Midline, No JVD Lungs: Reports: Normal Respiratory Effort, Decreased Breath Sounds, Rhonchi ( mild to resolved ) Cardiovascular: Reports: Regular Rate, Regular Rhythm GI/Abdominal Exam: Normal Bowel Sounds, Soft, Non-Tender, No Organomegaly, No Distention, No Abnormal Bruit, No Mass, Pelvis Stable (Female) Exam: Deferred Rectal (Female) Exam: Deferred Back Exam: Reports: Normal Inspection, Full Range of Motion Extremities: Normal Inspection, Normal Range of Motion, Non-Tender, No Pedal Edema, Normal Capillary Refill Skin: Reports: Warm, Dry, Intact Neurological: Reports: No New Focal Deficit Psy/Mental Status: Reports: Alert, Normal Affect, Normal Mood *Q Meaningful Use (DIS) - VTE *Q VTE Criteria *Q: - Stroke *Q Stroke Criteria *Q: - AMI *Q AMI Criteria *Q:
--- NOTE | 2017-11-27 08:04 | CR ---
Chest: Portable view of the chest was obtained. Comparison: Prior chest x-ray of 11/24/17. Continued decreased lung markings from prior study. Findings on the right side have not yet returned to baseline. No alveolar type densities are seen. Heart size is normal. Upper mediastinum appears within normal limits. Bony structures are grossly intact. Impression: 1. Findings are improved within the chest from previous chest x-ray. Lung markings on the right side have not returned to baseline. Diagnostic code #3
[2017-11-27] MEDS: Budesonide 0.5 MG/2 ML Neb Susp NEB SCH (09:03)
[2017-11-27] MEDS: busPIRone 5 MG Tab PO SCH (09:05)
[2017-11-27] MEDS: methylPREDNISolone Sodium Succinate 40 MG/1 ML SDV IVPUSH SCH (09:05)
[2017-11-27] MEDS: Enoxaparin 40 MG/0.4 ML Syringe SUBCUT SCH (09:05)
[2017-11-27] MEDS: Multivitamins with Minerals/Folic Acid/Lutein/Zeaxanth Tab PO SCH (09:05)
[2017-11-27] MEDS: Magnesium Oxide 400 MG Tab PO SCH (09:06)
[2017-11-27] MEDS: Simvastatin 20 MG Tab PO SCH (09:06)
[2017-11-27] MEDS: amLODIPine 10 MG Tab PO SCH (09:06)
[2017-11-27] MEDS: Losartan 100 MG Tab PO SCH (09:07)
[2017-11-27] MEDS: Modafinil 200 MG Tab PO SCH (09:16)
[2017-11-27] MEDS: Levofloxacin/Dextrose 5%-Water 750 MG in Premix Bag 1 BAG IV SCH (09:20)
== END 2017-11-27 13:05 | disposition home or self-care (01) | DRG 140 ==
LOC: JD.ED 09:03 → SUPCPDRO 09:03 → JD.ICU 11:40 → UNDOADMIN 11:40 → JD.ICU 12:09 → JD.MS 11-27 05:37
PROVIDERS: ADMIT Internal Medicine; ATTEND Internal Medicine
DX: J44.0 Chronic obstructive pulmonary disease with (acute) lower respiratory infection (principal); J44.1 Chronic obstructive pulmonary disease with (acute) exacerbation; J18.9 Pneumonia, unspecified organism; J96.01 Acute respiratory failure with hypoxia; E87.2 Acidosis; R41.82 Altered mental status, unspecified; F17.200 Nicotine dependence, unspecified, uncomplicated; F41.9 Anxiety disorder, unspecified; E78.5 Hyperlipidemia, unspecified; I10 Essential (primary) hypertension; M19.90 Unspecified osteoarthritis, unspecified site; G47.00 Insomnia, unspecified; E87.6 Hypokalemia; E83.42 Hypomagnesemia; F32.9 Major depressive disorder, single episode, unspecified; H54.7 Unspecified visual loss; Z79.899 Other long term (current) drug therapy
CPT/HCPCS: 36415; 36600; 71045; 71045-26; 71046; 71046-26; 80048; 80053; 81001; 82803; 83605; 83735; 83880; 85025; 86140; 86738; 87040; 87086; 87493; 87804; 87899; 93005; 94640; 94660; 94667; 94761; 96365; 96375; 97110-GO; 97161-GP; 97165-GO; 97530-GO; 99285; 99285-25; A9270-GY; J0456; J1650; J1956; J2920; J2930; J7040; J7050

== ENCOUNTER 2020-03-06 12:40 | Emergency (ER) | payer BC ==
[2020-03-06] MEDS ORDERED: Lidocaine 1% 10 ML MDV INJECT ONE (13:18)
--- NOTE | 2020-03-06 13:21 | EDM.PDOC ---
ED HPI GENERAL MEDICAL PROBLEM - General Chief Complaint: Laceration Stated Complaint: R ARM LAC Time Seen by Provider: 03/06/20 13:16 Source of Information: Reports: Patient History Limitations: Reports: No Limitations - History of Present Illness INITIAL COMMENTS - FREE TEXT/NARRATIVE: 64-year-old female states that she got tripped up in some tree branches and fell forwards. She caught the end of 1 of the larger tree branches on the volar aspect of her right wrist with a resultant V-shaped laceration occurring. Her tetanus toxoid is up-to-date. Injury occurred within the last 45 minutes. 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 (see below) - Related Data Allergies Allergy/AdvReac Type Severity Reaction Status Date / Time No Known Allergies Allergy Verified 04/02/19 15:45 Home Meds: Home Meds Magnesium 200 mg PO DAILY 11/22/17 [History] Potassium 75 mg PO DAILY 11/22/17 [History] Turmeric/Turmeric Root Extract [Turmeric 450-50 mg Capsule] 900 mg PO DAILY [History] Zolpidem [Ambien CR] 12.5 mg PO QPM 11/22/17 [History] amLODIPine Bes/Olmesartan Med [Chrissie 10-40 MG] 1 tab PO DAILY 11/22/17 [History] busPIRone HCl [Buspirone HCl] 2.5 tab PO BID 11/22/17 [History] Beet Root 1 tab PO DAILY 04/02/19 [History] Cholecalciferol (Vitamin D3) [Vitamin D3] 2,000 unit PO DAILY 04/02/19 [History] Ubidecarenone [Coq-10] 100 mg PO DAILY 04/02/19 [History] Umeclidinium Warner [Incruse Ellipta*] 1 puff INH DAILY 04/02/19 [History] Doxycycline [Vibra-Tabs] 100 mg PO BID #14 tablet 03/06/20 [Rx] Past Medical History HEENT History: Reports: Impaired Vision, Other (See Below) Other HEENT History: wears glasses, has dental implant Cardiovascular History: Reports: High Cholesterol, Hypertension Respiratory History: Reports: COPD, Pneumonia, Recurrent, Other (See Below) Other Respiratory History: hypoxia, dypsnea Gastrointestinal History: Reports: Other (See Below) Other Gastrointestinal History: abdomnial pain Genitourinary History: Reports: Other (See Below) Other Genitourinary History: urgency, frequency 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 Musculoskeletal History: Reports: Arthritis Neurological History: Reports: None Psychiatric History: Reports: Addiction, Anxiety, Other (See Below) Other Psychiatric History: anxiety, insomnia, ETOH abuse Endocrine/Metabolic History: Reports: None Hematologic History: Reports: None Immunologic History: Reports: None Oncologic (Cancer) History: Reports: None Dermatologic History: Reports: None - Past Surgical History Head Surgeries/Procedures: Reports: None HEENT Surgical History: Reports: Naso-Sinus Surgery Cardiovascular Surgical History: Reports: None Respiratory Surgical History: Reports: None GI Surgical History: Reports: Appendectomy, Colonoscopy Female Surgical History: Reports: Tubal Ligation Endocrine Surgical History: Reports: None Neurological Surgical History: Reports: None Musculoskeletal Surgical History: Reports: None Oncologic Surgical History: Reports: None Dermatological Surgical History: Reports: None Social & Family History - Family History Family Medical History: Noncontributory - Caffeine Use Caffeine Use: Reports: Coffee Other Caffeine Use: 1 cup coffee/day - Living Situation & Occupation Living situation: Reports: Occupation: Retired ED ROS GENERAL - Review of Systems Review Of Systems: See Below Constitutional: Reports: No Symptoms HEENT: Reports: Glasses Respiratory: Reports: No Symptoms Cardiovascular: Reports: Blood Pressure Problem, Dyspnea on Exertion Endocrine: Reports: No Symptoms (Sometimes) GI/Abdominal: Reports: No Symptoms : Reports: Frequency, Incontinence (Stress-induced) Musculoskeletal: Reports: Back Pain, Joint Pain Skin: Reports: No Symptoms Neurological: Reports: No Symptoms Psychiatric: Reports: No Symptoms Hematologic/Lymphatic: Reports: No Symptoms Immunologic: Reports: No Symptoms ED EXAM, SKIN/RASH Exam: See Below Exam Limited By: No Limitations General Appearance: Alert, WD/WN, Anxious, Mild Distress, Other Eye Exam: Bilateral Eye: Normal Inspection Extremities: Other (Examination was limited to the volar aspect of the right wrist. Patient has suffered a 4.5 cm V-shaped laceration volar aspect of the wrist. It is mildly contaminated with presumably tree branch material. Require cleansing and laceration repair.) Neurological: Alert, Oriented, CN II-XII Intact, Normal Cognition Psychiatric: Normal Affect, Normal Mood Skin: Warm, Dry, Normal Color ED SKIN PROCEDURES - Laceration/Wound Repair Right Lower Distal Wrist Appearance: Subcutaneous, Irregular, Mildly Contaminated Distal NVT: Neuro & Vascular Intact Anesthetic Type: Local Local Anesthesia - Bupivicaine (Marcaine): 0.5% Plain Local Anesthetic Volume: Other Skin Prep: Saline (10 cc) Exploration/Debridement/Repair: Wound Explored, Minimal Debridement, Foreign Material Removed Closed with: Sutures Lac/Wound length In cm: 4.5 Suture Size: 4-0 # of Sutures: 11 Suture Type: Nylon, Interrupted, Simple Course - Vital Signs Last Recorded V/S: Last Vital Signs Temp 36.3 C 03/06/20 13:18 Pulse 96 03/06/20 13:18 Resp 20 03/06/20 13:18 BP 142/89 H 03/06/20 13:18 Pulse Ox 97 03/06/20 13:18 - Orders/Labs/Meds Meds: Medications Discontinued Medications Generic Name Dose Route Start Last Admin Trade Name Tres PRN Reason Stop Dose Admin Lidocaine HCl 10 ml 03/06/20 13:18 03/06/20 13:45 Xylocaine 1% INJECT 03/06/20 13:19 10 ml ONETIME ONE Administration - Radiology Interpretation Free Text/Narrative:: 64-year-old female presents to the ED with a V-shaped laceration to the volar aspect of her right wrist that occurred when she tripped and fell in the yard. She landed in a pile of tree branches and 1 of the sharp edges of a tree trunk resulted in the laceration. She came to the hospital immediately after injury. Tetanus toxoid is felt to be up-to-date. Wound is contaminated with bits and pieces of tree branch. It will be therefore cleansed and debris removed. He will require laceration repair. It is approximately 4.5 cm in length. - Re-Assessments/Exams Free Text/Narrative Re-Assessment/Exam: 03/06/20 14:00: Wound was irrigated and then I was able to remove about 5 or 6 very small pieces of tree branch material. Wound was then sutured under local anesthetic. Length was 4.5 cm. 11 sutures were used. Sutures will be need to be removed in 11 days time. She will be placed on doxycycline 100 g twice daily for 7 days to prevent secondary wound infection. Departure - Departure Time of Disposition: 14:00 Disposition: Home, Self-Care 01 Condition: Fair Clinical Impression: Laceration of right wrist Qualifiers: Encounter type: initial encounter Qualified Code(s): S61.511A - Laceration without foreign body of right wrist, initial encounter - Discharge Information *PRESCRIPTION DRUG MONITORING PROGRAM REVIEWED*: Not Applicable *COPY OF PRESCRIPTION DRUG MONITORING REPORT IN PATIENT MARISOL: Not Applicable Prescriptions: Doxycycline [Vibra-Tabs] 100 mg PO BID #14 tablet Instructions: Laceration Care, Adult Referrals: Lisa Lares CAN TESTER [Primary Care Provider] - Forms: ED Department Discharge Additional Instructions: Evaluation in the emergency room today in regards to an injury to the volar aspect of your right wrist that occurred secondary to a fall a short time ago. It appears that a sharp tree branch resulted in a V-shaped laceration to the volar aspect of your right wrist. Wound was cleansed and sutured under local anesthetic . Treatment at home is to daily cleanse the wound with soap and water. Showering is okay. Wound should not be soaked under water until the sutures are removed. Apply topical antibiotic such as bacitracin or Polysporin to the wound once daily and cover with a bandage to keep clean. Sutures will need to be removed in 10 days time. Need to take antibiotic doxycycline 1 tablet twice daily with food for the next 7 days to prevent secondary wound infection since there was quite a bit of debris within the wound on exploration at the time of suture repair. Return to medical care if any signs of infection occur such as redness, swelling, or obvious pus. Sepsis Event Note - Focused Exam Vital Signs: Vital Signs Temp Pulse Resp BP Pulse Ox 03/06/20 13:18 36.3 C 96 20 142/89 H 97 Date Exam was Performed: 03/06/20 Time Exam was Performed: 14:04
== END 2020-03-06 14:10 | disposition home or self-care (01) ==
LOC: JD.ED 12:40
DX: S61.511A Laceration without foreign body of right wrist, initial encounter (principal); I10 Essential (primary) hypertension; J44.9 Chronic obstructive pulmonary disease, unspecified; F41.9 Anxiety disorder, unspecified; Z79.899 Other long term (current) drug therapy; W01.0XXA Fall on same level from slipping, tripping and stumbling without subsequent striking against object, initial encounter
CPT/HCPCS: 12002; 99282; J2001